=== PATIENT | male | born 1960 | race Caucasian/White ===

== ENCOUNTER 2022-06-02 07:42 | Outpatient (REF) | payer BC, SELFPAY ==
[2022-06-02 11:24] LABS: MANUAL DIFF FLAG NO
[2022-06-02 11:36] LABS: Basophils Percent Auto 0.5 % (0-2); Eosinophils Absolute Auto 0.3 X10*3/uL (0.0-0.4); Eosinophils Percent Auto 4.8 % (0-4); Hematocrit 46.7 % (42.0-52.0); Hemoglobin 15.8 g/dl (14.0-18.0); Imm Gran Abs Auto 0.02 X10*3/uL (0.00-0.03); Imm Gran Pct Auto 0.3 % (0.0-0.4); Lymphocytes Absolute Auto 1.4 X10*3/uL (1.2-4.9); Lymphocytes Percent Auto 21.8 % (20-40); Mean Corpuscular HGB Conc 33.8 g/dl (31.0-36.0); Mean Corpuscular Hemoglobin 31.1 pg (27.0-33.0); Mean Corpuscular Volume 91.9 fL (80.0-98.0); Mean Platelet Volume 10.1 fL (9.4-12.4); Monocytes Absolute Auto 0.9 X10*3/uL (0.1-1.2); Monocytes Percent Auto 13.7 % (2-11); Neutrophils Absolute Auto 3.7 x10*3/uL (2.0-8.3); Neutrophils Percent Auto 58.9 % (45-73); Platelet Count 318 X10*3/uL (160-400); Red Blood Count 5.08 X10*6/uL (4.60-5.80); Red Cell Distribution Width 12.6 % (11.0-16.0); White Blood Count 6.2 X10*3/uL (4.8-10.8)
[2022-06-02 12:33] LABS: Alanine Aminotransferase 27 U/L (0-40); Albumin Level 4.2 g/dL (3.5-5.0); Alkaline Phosphatase 97 U/L (39-117); Anion Gap 12 (12-20); Aspartate Amino Transferase 22 U/L (5-37); Bilirubin Total 0.7 mg/dL (0.0-1.0); Blood Urea Nitrogen 16 mg/dL (9-16); Calcium 9.7 mg/dL (8.4-10.2); Carbon Dioxide 28 mmol/L (22-29); Chloride 105 mmol/L (96-108); Cholesterol 159 mg/dL; Estimated Glomerular Filt Rate > 60; Glucose Random 90 mg/dL (60-115); HDL Cholesterol 36 mg/dL; LDL Cholesterol Calculated 99 mg/dl; Magnesium 2.2 mg/dL (1.6-2.6); Potassium 4.7 mmol/L (3.3-5.1); Sodium 140 mmol/L (135-145); Thyroid Stimulating Hormone 3.27 uIU/mL (0.32-4.0); Total Protein 6.6 g/dL (6.5-8.0); Triglycerides 123 mg/dL
== END 2022-06-02 07:43 | disposition home or self-care (01) ==
LOC: HO.MANLDS 07:42
PROVIDERS: Visit Provider Internal Medicine
DX: Z12.5 Encounter for screening for malignant neoplasm of prostate (principal); I47.1 Supraventricular tachycardia
CPT/HCPCS: 36415; 80053; 80061; 83735; 84153; 84443; 85025

== ENCOUNTER 2022-11-10 07:35 | Outpatient (REF) | payer BC, SELFPAY ==
[2022-11-10 11:38] LABS: MANUAL DIFF FLAG NO
[2022-11-10 11:54] LABS: Basophils Percent Auto 0.6 % (0-2); Eosinophils Absolute Auto 0.2 X10*3/uL (0.0-0.4); Hematocrit 45.3 % (42.0-52.0); Hemoglobin 14.8 g/dl (14.0-18.0); Imm Gran Abs Auto 0.02 X10*3/uL (0.00-0.03); Imm Gran Pct Auto 0.4 % (0.0-0.4); Lymphocytes Absolute Auto 1.7 X10*3/uL (1.2-4.9); Lymphocytes Percent Auto 35.2 % (20-40); Mean Corpuscular HGB Conc 32.7 g/dl (31.0-36.0); Mean Platelet Volume 10.3 fL (9.4-12.4); Monocytes Absolute Auto 0.5 X10*3/uL (0.1-1.2); Monocytes Percent Auto 9.1 % (2-11); Neutrophils Absolute Auto 2.5 x10*3/uL (2.0-8.3); Neutrophils Percent Auto 50.7 % (45-73); Platelet Count 283 X10*3/uL (160-400); Red Blood Count 4.77 X10*6/uL (4.60-5.80); Red Cell Distribution Width 12.7 % (11.0-16.0)
[2022-11-10 12:36] LABS: Alanine Aminotransferase 21 U/L (0-40); Albumin Level 4.1 g/dL (3.5-5.0); Alkaline Phosphatase 74 U/L (39-117); Anion Gap 11 (12-20); Aspartate Amino Transferase 19 U/L (5-37); Blood Urea Nitrogen 17 mg/dL (9-16); Calcium 9.4 mg/dL (8.4-10.2); Carbon Dioxide 27 mmol/L (22-29); Chloride 108 mmol/L (96-108); Cholesterol 141 mg/dL; Estimated Glomerular Filt Rate > 60; Glucose Random 93 mg/dL (60-115); HDL Cholesterol 38 mg/dL; LDL Cholesterol Calculated 86 mg/dl; Potassium 4.7 mmol/L (3.3-5.1); Prostate Specific Antigen 3.35 ng/mL (<0.05-4.0); Sodium 141 mmol/L (135-145); Total Protein 6.4 g/dL (6.5-8.0); Triglycerides 87 mg/dL
== END 2022-11-10 07:36 | disposition home or self-care (01) ==
LOC: HO.MANLDS 07:35
PROVIDERS: Visit Provider Internal Medicine
DX: Z12.5 Encounter for screening for malignant neoplasm of prostate (principal); I47.1 Supraventricular tachycardia
CPT/HCPCS: 36415; 80053; 80061; 84153; 85025

== ENCOUNTER 2023-05-29 11:23 | Outpatient (REF) | payer BC, SELFPAY ==
[2023-05-29 13:10] LABS: MANUAL DIFF FLAG NO
[2023-05-29 13:33] LABS: Basophils Percent Auto 0.3 % (0-2); Eosinophils Absolute Auto 0.1 X10*3/uL (0.0-0.4); Eosinophils Percent Auto 2.1 % (0-4); Hematocrit 44.5 % (42.0-52.0); Hemoglobin 14.9 g/dl (14.0-18.0); Imm Gran Abs Auto 0.02 X10*3/uL (0.00-0.03); Imm Gran Pct Auto 0.3 % (0.0-0.4); Lymphocytes Absolute Auto 1.8 X10*3/uL (1.2-4.9); Lymphocytes Percent Auto 30.1 % (20-40); Mean Corpuscular HGB Conc 33.5 g/dl (31.0-36.0); Mean Corpuscular Volume 92.5 fL (80.0-98.0); Mean Platelet Volume 10.1 fL (9.4-12.4); Monocytes Absolute Auto 0.4 X10*3/uL (0.1-1.2); Monocytes Percent Auto 6.7 % (2-11); Neutrophils Absolute Auto 3.5 x10*3/uL (2.0-8.3); Neutrophils Percent Auto 60.5 % (45-73); Platelet Count 298 X10*3/uL (160-400); Red Blood Count 4.81 X10*6/uL (4.60-5.80); Red Cell Distribution Width 12.6 % (11.0-16.0); White Blood Count 5.8 X10*3/uL (4.8-10.8)
[2023-05-29 13:44] LABS: Estimated Average Glucose 111 mg/dL; Hemoglobin A1c % 5.5 % (<6.0)
[2023-05-29 13:47] LABS: D Dimer High Sensitivity 572 NG/ML
[2023-05-29 14:20] LABS: Erythrocyte Sedimentation Rate 3 MM/HR (0-15)
[2023-05-29 18:14] LABS: Alanine Aminotransferase 20 U/L (0-40); Albumin Level 4.2 g/dL (3.5-5.0); Alkaline Phosphatase 74 U/L (39-117); Anion Gap 12 (12-20); Aspartate Amino Transferase 21 U/L (5-37); Bilirubin Total 0.8 mg/dL (0.0-1.0); Blood Urea Nitrogen 15 mg/dL (9-16); Calcium 9.7 mg/dL (8.4-10.2); Carbon Dioxide 26 mmol/L (22-29); Chloride 106 mmol/L (96-108); Estimated Glomerular Filt Rate > 60; Glucose Random 89 mg/dL (60-115); Iron 126 mcg/dL (45-160); Magnesium 2.3 mg/dL (1.6-2.6); Percent Iron Saturation 47 % (15-50); Potassium 4.2 mmol/L (3.3-5.1); Sodium 140 mmol/L (135-145); Total Iron Binding Capacity 266 mcg/dL (228-428); Total Protein 6.9 g/dL (6.5-8.0); Unsaturated Iron Binding 140 ug/dL
[2023-05-29 18:23] LABS: Ferritin 73 ng/mL (20-250); Free T4 (Free Thyroxine) 1.05 ng/dL (0.71-1.85); Thyroid Stimulating Hormone 2.09 uIU/mL (0.32-4.0)
== END 2023-05-29 11:24 | disposition home or self-care (01) ==
LOC: HO.MANLDS 11:23
PROVIDERS: Visit Provider Physician Assistant
DX: R42 Dizziness and giddiness (principal); R55 Syncope and collapse; R00.2 Palpitations
CPT/HCPCS: 36415; 80053; 82728; 83036; 83540; 83735; 84439; 84443; 85025; 85379; 85652; 86140

== ENCOUNTER 2024-01-14 07:34 | Outpatient (REF) | payer BC, SELFPAY ==
[2024-01-14 13:06] LABS: MANUAL DIFF FLAG NO
[2024-01-14 13:24] LABS: Basophils Percent Auto 0.4 % (0-2); Eosinophils Absolute Auto 0.4 X10*3/uL (0.0-0.4); Eosinophils Percent Auto 6.6 % (0-4); Hematocrit 47.8 % (42.0-52.0); Imm Gran Abs Auto 0.03 X10*3/uL (0.00-0.03); Imm Gran Pct Auto 0.5 % (0.0-0.4); Lymphocytes Absolute Auto 1.9 X10*3/uL (1.2-4.9); Lymphocytes Percent Auto 33.9 % (20-40); Mean Corpuscular HGB Conc 33.5 g/dl (31.0-36.0); Mean Corpuscular Hemoglobin 30.7 pg (27.0-33.0); Mean Corpuscular Volume 91.7 fL (80.0-98.0); Mean Platelet Volume 9.9 fL (9.4-12.4); Monocytes Absolute Auto 0.5 X10*3/uL (0.1-1.2); Monocytes Percent Auto 8.7 % (2-11); Neutrophils Absolute Auto 2.8 x10*3/uL (2.0-8.3); Neutrophils Percent Auto 49.9 % (45-73); Platelet Count 300 X10*3/uL (160-400); Red Blood Count 5.21 X10*6/uL (4.60-5.80); Red Cell Distribution Width 12.9 % (11.0-16.0); White Blood Count 5.6 X10*3/uL (4.8-10.8)
[2024-01-14 13:58] LABS: Alanine Aminotransferase 23 U/L (0-40); Albumin Level 4.2 g/dL (3.5-5.0); Alkaline Phosphatase 78 U/L (39-117); Anion Gap 10 (12-20); Aspartate Amino Transferase 22 U/L (5-37); Bilirubin Total 0.7 mg/dL (0.0-1.0); Blood Urea Nitrogen 18 mg/dL (9-16); Calcium 9.3 mg/dL (8.4-10.2); Carbon Dioxide 26 mmol/L (22-29); Chloride 107 mmol/L (96-108); Cholesterol 163 mg/dL (<200); Estimated Glomerular Filt Rate > 60; Glucose Random 90 mg/dL (60-115); HDL Cholesterol 42 mg/dL (>40); LDL Cholesterol Calculated 96 mg/dL (<100); Potassium 4.3 mmol/L (3.3-5.1); Sodium 139 mmol/L (135-145); Thyroid Stimulating Hormone 1.31 uIU/mL (0.32-4.0); Total Protein 6.8 g/dL (6.5-8.0); Triglycerides 127 mg/dL (<150)
[2024-01-14 14:07] LABS: Prostate Specific Antigen 1.56 ng/mL (<0.05-4.0)
== END 2024-01-14 07:35 | disposition home or self-care (01) ==
LOC: HO.MANLDS 07:34
PROVIDERS: Visit Provider Internal Medicine
DX: I47.10 Supraventricular tachycardia, unspecified (principal)
CPT/HCPCS: 36415; 80053; 80061; 84153; 84443; 85025

== ENCOUNTER 2024-04-25 08:46 | Outpatient (AMB) | payer MEDICARE, OTHER, SELFPAY ==
--- NOTE | 2024-04-25 08:50 | HO.SPINEOV ---
Vital Signs 04/25/24 08:59 Height 5 ft 11 in Weight 180 lb BMI 25.1 Intake Visit Reasons: pinch nerve/pain right buttock area Intake Note: Mr. Ace is here today c/o right sided buttock pain with partial numbness down the leg to the foot. Student Union Consultant Required: No Allergies No Known Allergies Allergy (Verified 04/25/24 08:59) Physical Exam Vital Signs: BMI result Body Mass Index 25.1 Assessment & Plan Assessment & Plan (1) Lumbar stenosis with neurogenic claudication: Code(s): M48.062 - Spinal stenosis, lumbar region with neurogenic claudication Category: Medical Plan Dear colleague Thank you for referring Juan Ace to the office today with a chief complaint of intermittent right leg pain. HPI: This 63-year-old male has a 1 year history of intermittent pain on the right side of his back and buttock. When the pain arises, it comes during walking or standing in the kitchen. Sitting down relieves the symptoms. He still plays golf and he could finish the 18 holes but he will feel the pain at that time. He also noticed numbness on the lateral side of his right thigh. His toes and ball of his foot are also feeling swollen. The left side is unaffected. He denies weakness. A recent cortisone shot only helped for 2 weeks. The following conservative treatment options were tried without success antiinflammatories, tylenol, physical therapy and, cortisone shots PMH: Paroxysmal atrial tachycardia. He may be a candidate for ablation. He is under cardiological evaluation Medications: Diltiazem, flecainide, atorvastatin Allergies: NKDA Social history: , nonsmoker Physical Exam: Pleasant male. Straight leg raise is negative. Motor exam is 5/5 throughout. Sensory exam shows diminished sensation over the right lateral part of his right thigh. Reflexes are symmetrically intact. No pathological reflexes. Gait is undisturbed. Radiological Studies: MRI done at [facility] on 05/14/2023 shows lumbar degenerative scoliosis but more importantly it shows [id number] right L5 neuroforaminal stenosis. Dynamic lumbar x-rays show no signs of instability and again confirms the lumbar degenerative scoliosis with the apex at L4-5. Impression/Plan: This 63-year-old male suffering from unilateral neurogenic claudication due to right L5 neuroforaminal stenosis. He failed conservative management. The symptoms are interfering with his daily activities. Therefore I offered him a right L5 foraminotomy. He is tentatively scheduled for 06/19/2024. He will obtain preoperative cardiology clearance. Thank you for allowing me to participate in your patients care. total time spent was 50 minutes in counseling ,coordination of plan, personal review of imaging, surgical decision making and subsequent plan Isaias Townsend MD, PhD Spine Fellowship Trained Neurosurgeon Director, [facility] Orders: Orders XR lumbar spine 4V min Today M48.062 - Spinal stenosis, lumbar region with neurogenic claudication Coding Level of Care Code New Pt Level 4 (00324) Diagnoses Lumbar stenosis with neurogenic claudication M48.062
[2024-04-25 08:59] VITALS: BMI 25.1
== END 2024-04-25 09:50 | disposition home or self-care (01) ==
PROVIDERS: PCP Internal Medicine; Visit Provider Neurological Surgery
DX: M48.062 Spinal stenosis, lumbar region with neurogenic claudication (principal)
CPT/HCPCS: 99204

== ENCOUNTER 2024-04-25 08:46 | Outpatient (REF) | payer MEDICARE, OTHER, SELFPAY | END 2024-04-25 08:47 | disposition home or self-care (01) | LOC: HO.HOSX 08:46 | PROVIDERS: PCP Internal Medicine; Visit Provider Neurological Surgery | DX: M48.062 Spinal stenosis, lumbar region with neurogenic claudication (principal) | CPT/HCPCS: 72110; 99202 ==

== ENCOUNTER 2024-06-19 06:47 | Day surgery (SDC) | payer MEDICARE, OTHER, SELFPAY ==
[2024-06-03 10:03] VITALS: BP 126/78; PULSE 64; RESP 18; O2SAT 96; BMI 26.1
--- NOTE | 2024-06-17 12:04 | P.CONAN_ITS ---
Documented by User: Analy Ornelas NP 06/17/24 12:09 HPI - Anesthesia Eval Consult details Narrative: 64yo M for Right L5 foraminotomy [facility] for atrial arrhythmia (remote PAF hx). Last office visit 05/2024, ok to proceed with spine surgery, planned further EP w/u after recovered. Reports good exercise tolerance with regular treadmill runs PMFSH Active Problems Active Problems: All Active Problems Lumbar stenosis with neurogenic claudication (Acute) Past Medical History Medical History (Updated 06/19/24 @ 07:09 by Mer Lowe RN) Chalazion Elevated cholesterol SVT (supraventricular tachycardia) Acute tear lateral meniscus Rotator cuff syndrome Polyp of colon Rupture of left rotator cuff Lateral epicondylitis Weakness Otitic barotrauma PAT (paroxysmal atrial tachycardia) Sleep apnea Arrhythmia Surgical History Surgical History (Updated 06/19/24 @ 07:09 by Mer Lowe RN) History of esophagogastroduodenoscopy (EGD) H/O colonoscopy Hx of knee surgery Hx of tonsillectomy Social History Social History Are you a primary post anesthesia care unit nurse to a significant other at home: No Do you presently have visiting nurse or other home services: No Patient Tobacco Use Status: Never used Tobacco Use of substances other than those prescribed or required for medical reasons: No Have you been hit, kicked, punched, or otherwise hurt by someone within the past year? If so, by whom?: No Are you DNR?: No Advance Directives: No Advance Directives Information Provided: Yes Advance Directives on File: No Recently lost weight without trying: No Eating poorly because of decreased appetite: No Nutrition Risks: No Nutritional Risk Poor oral hygiene: Yes (crowns) Meds Allergies Allergy/AdvReac Type Severity Reaction Status Date / Time No Known Allergies Allergy Verified 04/25/24 08:59 Home Medications ?Medication ?Instructions ?Recorded ?Confirmed ?Last Taken ?Type aspirin 81 mg tablet,delayed 81 mg PO DAILY 06/03/24 06/03/24 06/11/24 History release atorvastatin 20 mg tablet 40 mg PO DAILY 06/03/24 06/03/24 Unknown History cholecalciferol (vitamin D3) 10 20 mcg PO DAILY 06/03/24 06/03/24 Unknown History mcg (400 unit) tablet coenzyme Q10 30 mg capsule 30 mg PO DAILY 06/03/24 06/03/24 Unknown History diltiazem HCl 240 mg capsule,24 240 mg PO DAILY 06/03/24 06/03/24 06/19/24 History hr,extended release flecainide 150 mg tablet 75 mg PO Q12H 06/03/24 06/03/24 06/19/24 History ibuprofen 400 mg tablet 400 mg PO Q6H PRN Pain 06/03/24 06/03/24 Unknown History epitnvtj-ekfm-[id number] gluconate 9 15 ml PO DAILY 06/03/24 06/03/24 Unknown History mg iron/15 mL (15 mL) oral liquid (Centrum) sildenafil 50 mg tablet 50 mg PO DAILY PRN Sexual Activity 06/03/24 06/03/24 Unknown History Exam Height,Weight and Vital Signs: Height 5 ft 11 in Weight 84.822 kg Last Vital Signs Pulse 64 06/03/24 10:03 Resp 18 06/03/24 10:03 BP 126/78 06/03/24 10:03 Pulse Ox 96 06/03/24 10:03 O2 Del Method Room Air 06/03/24 10:03 Pertinent Lab Results Pertinent Lab Results: Laboratory Tests 01/14/24 07:39 WBC 5.6 Hgb 16.0 Hct 47.8 Plt Count 300 Sodium 139 Potassium 4.3 Chloride 107 Carbon Dioxide 26 BUN 18 H Creatinine 0.87 Narrative Narrative: EKG 05/2024 SB with 1st deg AV block ECHO 2022 Nml EF, no valve disease Assessment and Plan Assessment Anesthesia Assessment: Chart Reviewed Documented by User: Jos Enciso MD 06/19/24 07:28 [facility], [facility] Past Medical History Medical History (Updated 06/19/24 @ 07:09 by Mer Lowe RN) Chalazion Elevated cholesterol SVT (supraventricular tachycardia) Acute tear lateral meniscus Rotator cuff syndrome Polyp of colon Rupture of left rotator cuff Lateral epicondylitis Weakness Otitic barotrauma PAT (paroxysmal atrial tachycardia) Sleep apnea Arrhythmia Family History Family history of problems with anesthesia: No Surgical History Surgical History (Updated 06/19/24 @ 07:09 by Mer Lowe RN) History of esophagogastroduodenoscopy (EGD) H/O colonoscopy Hx of knee surgery Hx of tonsillectomy History of Problems with Anesthesia: No Social History Social History Are you a primary post anesthesia care unit nurse to a significant other at home: No Do you presently have visiting nurse or other home services: No Patient Tobacco Use Status: Never used Tobacco Use of substances other than those prescribed or required for medical reasons: No Have you been hit, kicked, punched, or otherwise hurt by someone within the past year? If so, by whom?: No Are you DNR?: No Advance Directives: No Advance Directives Information Provided: Yes Advance Directives on File: No Recently lost weight without trying: No Eating poorly because of decreased appetite: No Nutrition Risks: No Nutritional Risk Poor oral hygiene: Yes (crowns) Meds Allergies Allergy/AdvReac Type Severity Reaction Status Date / Time No Known Allergies Allergy Verified 04/25/24 08:59 Home Medications ?Medication ?Instructions ?Recorded ?Confirmed ?Last Taken ?Type aspirin 81 mg tablet,delayed 81 mg PO DAILY 06/03/24 06/03/24 06/11/24 History release atorvastatin 20 mg tablet 40 mg PO DAILY 06/03/24 06/03/24 Unknown History cholecalciferol (vitamin D3) 10 20 mcg PO DAILY 06/03/24 06/03/24 Unknown History mcg (400 unit) tablet coenzyme Q10 30 mg capsule 30 mg PO DAILY 06/03/24 06/03/24 Unknown History diltiazem HCl 240 mg capsule,24 240 mg PO DAILY 06/03/24 06/03/24 06/19/24 History hr,extended release flecainide 150 mg tablet 75 mg PO Q12H 06/03/24 06/03/24 06/19/24 History ibuprofen 400 mg tablet 400 mg PO Q6H PRN Pain 06/03/24 06/03/24 Unknown History fbwtgtvp-prcp-pfblczp gluconate 9 15 ml PO DAILY 06/03/24 06/03/24 Unknown History mg iron/15 mL (15 mL) oral liquid (Centrum) sildenafil 50 mg tablet 50 mg PO DAILY PRN Sexual Activity 06/03/24 06/03/24 Unknown History Exam Airway Mallampati Class: II TM Dist: >3cm Neck ROM: Full Assessment and Plan Assessment Anesthesia Assessment: Anesthesia Plan Discussed Final Anesthetic Review Family History of Problems with Anesthesia: No History of Problems with Anesthesia: No ASA Class: II Final Preanesthetic Review: No Changes in Pt Med Stat, Meds/Allgs Chart Reviewed, Consent Obtained/Reviewed, Anes Risks/Benef Reviewed and DNR Form (If Appl.) Patient Risk: Intermediate Procedure Risk: Intermediate Anesthetic Plan Anesthetic Plan: GA Disposition: Standard PACU
--- NOTE | 2024-06-19 07:02 | MHC.SHP ---
Pre-Procedural Eval Section A - 24 Hr Update-Section A only Date of Service: 06/19/24 Section B - Complete if H&P > 30 days Chief Complaint: Spinal stenosis, lumbar region with neurogenic Allergies: Allergies Allergy/AdvReac Type Severity Reaction Status Date / Time No Known Allergies Allergy Verified 04/25/24 08:59 Review of Systems Sugical H&P ROS: Negative: Constitution, Cardiovascular, Respiratory, Neurological, Psychiatric, Hem-Onc, Allergic/Immunologic, Gastrointestinal, Genitourinary, Musculoskeletal, Integumentary, Endocrine and Eyes/Ears/Nose/Throat Exam Surgical H&P Exam: Not Evaluated: HEENT, Not Evaluated: Heart, Not Evaluated: Lungs, Not Evaluated: Extremities, Not Evaluated: Abdomen, Not Evaluated: Skin and Not Evaluated: Neurological Exam Comment: The patient is awake, alert, in no acute distress. Proposed surgical incision site is clean with no signs of recent surgery or trauma. Plan Diagnosis/Plan: Unchanged I have reviewed the history and physical and performed a pertinent physical examination on my patient. No changes have occurred unless specified. Plan remains the same, right L5 foraminotomy. Time Spent With Patient Time: Total time managing care of this patient today __11__ minutes.
--- NOTE | 2024-06-19 07:04 | P.DS_ITS ---
DS: Providers Provider Primary care physician: Landen Nunez MD Physical Exam Vital Signs: Vital Signs: Last Vital Signs Pulse 64 06/03/24 10:03 Resp 18 06/03/24 10:03 BP 126/78 06/03/24 10:03 Pulse Ox 96 06/03/24 10:03 O2 Del Method Room Air 06/03/24 10:03 BMI result Body Mass Index 26.1 Discharge Plan Discharge Patient Disposition: Home, Self-Care Referrals: Landen Nunez MD [Primary Care Provider] - 1 Week Discharge Medications: New oxycodone 5 mg tablet 5 mg PO Q6H PRN (Reason: pain) Qty: 20 0RF Rx Instructions: Partial Fill upon patient request. Continued atorvastatin 20 mg tablet 40 mg PO DAILY flecainide 150 mg Tablet 75 mg PO Q12H sildenafil 50 mg Tablet 50 mg PO DAILY PRN (Reason: Sexual Activity) Rx Instructions: administer 30 minutes to 4 hours before activity diltiazem HCl 240 mg Capsule,Extended Release 24 Hr 240 mg PO DAILY cholecalciferol (vitamin D3) 10 mcg (400 unit) Tablet 20 mcg PO DAILY coenzyme Q10 30 mg Capsule 30 mg PO DAILY Centrum 9 mg iron/ 15 mL (15 mL) Liquid 15 ml PO DAILY Held aspirin 81 mg Tablet,Delayed Release (Dr/Ec) 81 mg PO DAILY Hold Instructions: Resume on 06/23/24. ibuprofen 400 mg Tablet 400 mg PO Q6H PRN (Reason: Pain) Hold Instructions: Resume on 06/20/24. Diet: Advance to usual diet Activity on Discharge: As tolerated Activity Restrictions/Additional Instructions: After your spinal surgery we ask you to observe the following rest rictions/guidelines: Activity: It is normal to feel some discomfort as you increase your activity, but that will improve with time. We ask you avoid heavy lifting or acitivities that cause pain. As a general rule, 8lbs is a safe limit for lifting right after surgery. Walk as much as you feel comfortable but not to exhaustion. You will feel extra tired the first few days after surgery. Stay well hydrated. It is OK to walk up and down stairs You may return to driving when you are off narcotics (such as vicodin, oxycodone, dilaudid, etc), and you are back to normal functional capacity. If you have any concerns please check with office before driving. Return to work is specific to each patient and each surgery, so please speak with your doctor/PA at first follow up. Please bring paperwork such as FMLA at that time if you need it filled out. Medications: You may resume your aspirin 3 days after surgery. You may resume ibuprofen tomorrow. We recommend you take 1,000mg Tylenol every 8 hours for the first few weeks after surgery, if you do not have any liver issues and can tolerate this medication. Do not exceed 4,000mg daily. We will give you a short supply of narcotics after surgery (usually one weeks worth). If you need more please call the office but do not use more than prescribed. You will need to give our office 48 hours notice if you need narcotics refilled and we do not fill narcotics on weekends or evenings. If you are on a narcotic, it is a good idea to take a stool softener such as colace or senna to avoid constipation If you take blood thinner such as aspirin, Plavix, Coumadin, Effient, Eliquis etc for conditions such as Afib, DVT, Pulmonary embolus, coronary disease, stents etc please speak with your surgeon about specific details as to when you can resume these medications. You can resume NSAIDs on post op day 1 (eg: Motrin, Naproxen, etc). Follow up: Please call the office, , after surgery to arrange a 3 week follow up for wound check. Wound Care: You may remove your dressing on the first day after surgery. ?You may ?leave open to air. Please do not remove the steri strips underneath. they will fall off on their own in one week. IT IS NORMAL FOR THE WOUND TO OOZE OR BE BLOODY FOR A FEW DAYS AFTER SURGERY. ?IF THIS HAPPENS JUST PLACE NEW DRESSING OVER IT TO AVOID STAINING CLOTHES. You may shower on post op day # 1 We ask that you do not let the water soak the wound. If it does get wet, just towel dry lightly. Please do not scrub your incision or place any type of chemical/ointment on the wound. No tub baths, pools or jacuzzis for one month. If you have any leaking or redness from your wound, or fevers, please call the office. Print Language: Peruvian
[2024-06-19 07:28] VITALS: BP 123/76; PULSE 59; RESP 16; TEMP 36.8; O2SAT 96
[2024-06-19] MEDS: Lactated Ringers 1,000 ML 100 ML IVCONT (07:37)
[2024-06-19] MEDS: methocarbamoL 750 MG TABLET PO (07:43)
[2024-06-19] MEDS: Gabapentin 300 MG CAPSULE PO (07:43)
--- NOTE | 2024-06-19 09:36 | P.OP_ITS ---
Operative Note Operative Note Date of Service: 06/19/24 Narrative: Preoperative Diagnosis: Spinal stenosis/lateral recess stenosis/neural foraminal stenosis Operation: Right L5 Laminotomy, Partial facetectomy and foraminotomy with use of microscope Consent Informed Consent was obtained for this operation. I have explained the nature, purpose and benefits of the operation. I have discussed the risks and benefit of the operation including possible complications or adverse events with patient/family. Alternative(s) were discussed with the patient with their relative benefits and risks as well as the consequences of not accepting the operation were included in obtaining consent. Surgeon: PHI ALEMAN MD, PHD Procedure Assisted By: Bernabe Mai PA-C Description of Procedure This patient is suffering from a right L5 lumbar radiculopathy. He was offered a right L5 foraminotomy with decompression of the nervous structures. The procedure complications were explained. The patient was consented. The patient was brought to the operating room and endotracheally intubated. The patient was turned in prone position on the Wayne frame. Prep and drape was done followed by timeout. Physician employee relations assistant provided access. A mid lumbar incision was made followed by release of the paravertebral muscle on the right side to expose the L5 lamina and facet joint. An intraoperative x-ray was obtained to confirm the correct level. The microscope was brought in. I took over the procedure. The high-speed drill was used to do a L5 laminotomy. #2 Kerrison was used to further remove the lamina towards the L5 foramen. With a nerve hook the medial wall of the L5 pedicle was palpated as well as the beginning of the L5 foramen. The facet joint was partially drilled down after which with a #2 Kerrison a foraminotomy was done. Finally a foraminotomy Kerrison was used to complete the foraminotomy. A long nerve hook could be easily passed lateral and dorsally from the nerve root, a sign of relief of the neuroforaminal stenosis and decompression of the nerve root . The microscope was removed. Hemostasis was done. Incision was closed in 2 layers. Steri-Strips were used to approximate incision. An OpSite with Tegaderm was used to cover the incision. All sponge needle counts were correct. Patient was extubated and transported in stable is to recovery room. Anesthesia: General Estimated Blood Loss (ml): Minimal Duration of Surgery: Under 60 Minutes Postoperative Plan: Discharge to home
[2024-06-19 09:48] VITALS: BP 120/63; PULSE 77; RESP 16; TEMP 36.1; O2SAT 97
[2024-06-19 09:54] VITALS: BP 114/64; PULSE 70; RESP 16; O2SAT 97
[2024-06-19 10:00] VITALS: BP 118/66; PULSE 67; RESP 16
[2024-06-19 10:05] VITALS: BP 118/64; PULSE 70; RESP 16; O2SAT 99
[2024-06-19 10:20] VITALS: BP 121/72; PULSE 65; RESP 16; TEMP 36.2; O2SAT 95
== END 2024-06-19 11:14 | disposition home or self-care (01) ==
PROVIDERS: PCP Internal Medicine; Visit Provider Neurological Surgery
PROC: (CPT 63047; principal; 2024-06-19 09:00)
DX: M48.062 Spinal stenosis, lumbar region with neurogenic claudication (principal); R20.0 Anesthesia of skin; M41.56 Other secondary scoliosis, lumbar region; M79.89 Other specified soft tissue disorders; I47.19 Other supraventricular tachycardia; G47.33 Obstructive sleep apnea (adult) (pediatric); Z79.899 Other long term (current) drug therapy
CPT/HCPCS: 63047; J0131; J0690; J1100; J1885; J2003; J2250; J2405; J2704; J3010

== ENCOUNTER → 2024-06-19 06:47 | Outpatient (BNV) | payer MEDICARE, OTHER, SELFPAY | PROVIDERS: PCP Internal Medicine; Visit Provider Neurological Surgery | DX: M48.062 Spinal stenosis, lumbar region with neurogenic claudication (principal) | CPT/HCPCS: 63047 ==

== ENCOUNTER 2024-07-10 09:51 | Outpatient (AMB) | payer MEDICARE, OTHER, SELFPAY ==
--- NOTE | 2024-07-10 09:52 | HO.SPINEOV ---
Intake Visit Reasons: 1st post op Intake Note: Mr. Ace is here today for his 1st post op visit. Wire Stretcher Required: No Allergies No Known Allergies Allergy (Verified 07/10/24 09:53) Assessment & Plan Assessment & Plan (1) Lumbar stenosis with neurogenic claudication: Code(s): M48.062 - Spinal stenosis, lumbar region with neurogenic claudication Category: Medical Plan Operation: Right L5 Laminotomy, Partial facetectomy and foraminotomy Juan comes in today for his 1st postoperative visit. To recap he was initially seen in clinic for 1 year history of intermittent pain on the right side of his back and buttock. He underwent right sided L5 foraminotomy to address this. The patient reports he is up walking around and completing the majority of his ADLs. He reports that he only now intermittently suffers from his right-sided back / buttocks discomfort, which he feels is improving day by day. No new neurological deficits. Patient is able to ambulate well, rises from a seated position without difficulty. Incision site is closed, well healing, with no signs of drainage. We will follow-up with the patient in 6 weeks for their 2nd postoperative visit. Bernabe Townsend MD,PhD [facility] Coding Level of Care Code Global (96361) Diagnoses Lumbar stenosis with neurogenic claudication M48.062
== END 2024-07-10 10:07 | disposition home or self-care (01) ==
PROVIDERS: PCP Internal Medicine; Visit Provider Physician Assistant
DX: M48.062 Spinal stenosis, lumbar region with neurogenic claudication (principal)
CPT/HCPCS: 99024

== ENCOUNTER → 2024-07-10 09:51 | Outpatient (BNVA) | payer MEDICARE, OTHER, SELFPAY | PROVIDERS: PCP Internal Medicine; Visit Provider Physician Assistant | DX: Z48.89 Encounter for other specified surgical aftercare (principal); M48.062 Spinal stenosis, lumbar region with neurogenic claudication; Z98.890 Other specified postprocedural states | CPT/HCPCS: 99212 ==

== ENCOUNTER 2024-08-21 09:50 | Outpatient (AMB) | payer MEDICARE, OTHER, SELFPAY ==
--- NOTE | 2024-08-21 10:07 | HO.SPINEOV ---
Intake Visit Reasons: 2nd post op Intake Note: Mr. Ace is here today for his 2nd post op. Network Engineer Required: No Allergies No Known Allergies Allergy (Verified 08/21/24 10:07) Assessment & Plan Assessment & Plan (1) Lumbar stenosis with neurogenic claudication: Code(s): M48.062 - Spinal stenosis, lumbar region with neurogenic claudication Category: Medical Plan Procedure: Right L5 Laminotomy, Partial facetectomy and foraminotomy Juan is a pleasant 64-year-old male who comes in today for a 2nd postoperative visit. To recap he underwent a right-sided L5 foraminotomy on 06/19/2024 to address his right lumbar radiculopathy. During his last postoperative visit he was doing very minimal right-sided back and leg pain when increasing activity. He was accompanied by his significant other to this visit today. They both asked several questions regarding the postoperative healing course all of which I answered to the best of my ability. No new neurological deficits. The patient ambulates well and rises from a seated position without difficulty. His posterior incision site is closed and well healed. There is no need for continued routine follow up with Juan, he may be discharged as a patient. Bernabe Townsend MD,PhD [facility] Coding Level of Care Code Global (85755) Diagnoses Lumbar stenosis with neurogenic claudication M48.062
--- OUTSIDE RECORDS SUMMARY | 2024-08-21 12:02 | XMS_ITS | Encounter Summary ---
Author Organization [facility] Address [address] [place] [address] Care Team Providers Care Director Of Officiating Name Role Phone Rafael Suárez MD Unavailable [phone] Nenita Desir MD Unavailable Sherry Schwartz DO Unavailable Unavailable Danie Mobley MD Unavailable [phone] Tila Russell MD Unavailable Unavailable Dalton Campos MD Unavailable Vinicio Bell DMD Unavailable Dalton Castrejon MD Unavailable Colin Ervin DPM Unavailable [phone] Pcp, No Primary Care Provider Unavailabl e Reason for Visit * Reason Comments Medication Refill Encounter Details Date Type Department Care Team (Late st Contact Info) Description 12/14/2021 Refill [facility] [place] [address] [facility], [id number] [place] [id number] Ariana Mckinley MD [address] [place] [address] Elevated cholesterol Social History Tobacco Use Types Packs/Day Years Used Date Smoking Tobacco: Never Smokeless Tobacco: Never Alcohol Use Standard Drinks/Week Comments Yes 0 (1 standard drink = 0.6 oz pur e alcohol) SOCIALLY PHQ-2 Answer Date Recorded PHQ-2 Total Score 0 04/15/2020 Sex and Gender Information Value Date Recorded Sex Assigned at Not on file Gender Identity Male 12/09/2022 10:23 AM EDT Sexual Orientation Heterosexual (straight) 12/09 10:23 AM EDT documented as of this encounter Plan of Treatment Not on file documented as of this encounter Visit Diagnoses Diagnosis Elevated cholesterol Pure hypercholesterolemia documented in this encounter Care Teams Director Of Officiating Relationship Specialty Start Date End Date Pcp, No [address] [place] [address] PCP - General 12/28/20 Rafael Suárez MD Surgery, Colorectal 03/07/18 Nenita Desir MD Cardiovascular Disease 03/07/18 Sherry Schwartz DO Pulmonary Medicine 04/14/19 Danie Mobley MD Pulmonary Medicine 05/06/19 Tila Russell MD Otolaryngology 07/14/19 Dalton Campos MD Cardiovascular Disease 01/27/20 Vinicio Bell DMD Dentistry 04/15/20 Dalton Castrejon MD [address] [place] [id number] Ophthalmology 04/15/20 Colin Ervin DPM [address] [place] [id number] Podiatry 04/15/20 documented as of this encounter
--- OUTSIDE RECORDS SUMMARY | 2024-08-21 12:02 | XMS_ITS | Encounter Summary ---
Author Organization [facility] Address [address] [place] [address] Care Team Providers Care Hospital Nurse Liaison Name Role Phone Provider, Jeanine HENDERSON Primary Care Provider Un available Rommel Galdamez MD Primary Care Provider Unavail able Rafael Suárez MD Unavailable +- [phone] Nenita Desir MD Unavailable Sherry Schwartz DO Unavailable Unavailable Danie Mobley MD Primary Care Provider [phone] Danie Mobley MD Unavailable [phone] Rommel Galdamez MD Primary Care Provider Unavail able Tila Russell MD Unavailable Unavailable Rommel Galdamez MD Unavailable Unavailable Ariana Mckinley MD Primary Care Provider [phone] Dalton Campos MD Unavailable [phone] Vinicio Bell DMD Unavailable [phone] Dalton Castrejon MD Unavailable [phone] Colin Ervin DPM Unavailable [phone] Pcp, No Primary Care Provider Unavailabl Ariana Woodson MD Unavailable Encounter Details Date Type Department Care Team (Late st Contact Info) Description 03/21/2017 Scanned Document [address], [address] [place] [address] Rommel Galdamez MD Social History Tobacco Use Types Packs/Day Years Used Date Smoking Tobacco: Never Alcohol Use Standard Drinks/Week Comments No 0 (1 standard drink = 0.6 oz pur e alcohol) Sex and Gender Information Value Date Recorded Sex Assigned at Not on file Gender Identity Male 12/09/2022 10:23 AM EDT Sexual Orientation Heterosexual (straight) 12/09 10:23 AM EDT documented as of this encounter Plan of Treatment Not on file documented as of this encounter Visit Diagnoses Not on filedocumented in this encounter Care Teams Hospital Nurse Liaison Relationship Specialty Start Date End Date ProviderJeanine MD PCP - General 11/28/16 04/17/17 Rommel Galdamez MD PCP - General Internal Medicine 04/18/17 05/05/19 Danie Mobley MD PCP - General Pulmonary Medicine 05/06/19 06/25/19 Rommle Galdamez MD PCP - General Internal Medicine 06/26/19 09/25/19 Rommel Galdamez MD PCP - [place] [employer] Attributed 10/09/18 05/10/19 Ariana Mckinley MD [address] [place] [address] PCP - General Internal Medicine 09/26/19 12/27/20 Pcp, [address] [address] PCP - General 12/28/20 Ariana Mckinley MD [address] [place] [address] PCP - [place] [employer] Attributed 10/09/20 11/08/20 Rafael Suárez MD Surgery, Colorectal 03/07/18 Nenita Desir MD Cardiovascular Disease 03/07/18 Sherry Schwartz DO Pulmonary Medicine 04/14/19 Danie Mobley MD Pulmonary Medicine 05/06/19 Tila Russell MD Otolaryngology 07/14/19 Dalton Campos MD [address] [place] [address] Cardiovascular Disease 01/27/20 Vinicio Bell, DMD [address] [place] [address] Dentistry 04/15/20 Dalton Castrejon MD [address] [place] [address] [address] [place] [address] Ophthalmology 04/15/20 Colin Ervin DPM [address] [place] [address] Podiatry 04/15/20 documented as of this encounter
--- OUTSIDE RECORDS SUMMARY | 2024-08-21 12:02 | XMS_ITS | Clinical Summary ---
Author Organization [facility] Address [address] [place] [address] Care Team Providers Care Pie Dough Roller Name Role Phone Rafael Suárez MD Unavailable [phone] Nenita Desir MD Unavailable Sherry Schwartz DO Unavailable Unavailable Danie Mobley MD Unavailable [phone] Tila Russell MD Unavailable Unavailable Dalton Campos MD Unavailable [phone] Vinicio Bell DMD Unavailable +[phone] Dalton Castrejon MD Unavailable [phone] Colin Ervin DPM Unavailable [phone] Pcp, No Primary Care Provider Unavailabl e Allergies No known active allergies Medications Medication Sig Dispensed Refills Start Date End Date Status aspirin enteric coated (ECOTRIN LOW STRENGTH) 81 MG EC tablet Take 81 mg by mouth. Active Multiple Vitamin (MULTIVITAMIN) tablet Take 1 tablet by mouth. Active diltiazem (CARDIZEM CD) 240 MG 24 hr capsule 03/31/2017 Active flecainide (TAMBOCOR) 150 MG tablet Take 150 mg by mouth twice daily (every 12 hours). Active sildenafil (VIAGRA) 50 MG tabletIndications:Ere ctile dysfunction, unspecified erectile dysfunction type Take 1 tablet (50 mg total) by mouth daily as needed for erectile dysfunction. 10 tablet 3 10/06/2020 Active atorvastatin (LIPITOR) 20 MG tabletIndications:Jayda maciel cholesterol TAKE 1 TABLET BY MOUTH EVERY DAY 90 tablet 3 10/28/2020 Active Active Problems Problem Noted Date Diagnosed Date Vitamin D insufficiency 04/22/2020 Sleep apnea 04/15/2020 Lateral epicondylitis of right elbow 04/05/2017 Nocturia 04/05/2017 Paroxysmal atrial fibrillation 03/20/2017 Atrial fibrillation 03/04/2017 Palpitation 01/30/2017 Overview (03/07/2018): PSVT on diltiazem precipitated by trumpet playing or Flomax Paroxysmal supraventricular tachycardia 06/14/19 15 Overview (04/05/2017): Overview: 1. Paroxysmal supraventricular tachycardia with palpitations. 24 Holter monitoring on 01/26/12 showed episodes of 2:1 atrial tachycardia at a rate of 130 -170 bpm. It is typically of sudden onset and gradual offset and Holter tracing also demonstrated cool down phenomena. One occupational trigger was playing trDriverSideet. There was occasional lightheadedness during tachycardia. No syncope or presyncope events. Symptom occurred since July 2011. Frequency is about 2-4 times a month. Duration is about 5-10 min. palpitations occurring randomly during his trumpet practice but not actual trDriverSideet performance. Symptom is fully controlled with current dose of calcium channel tian. Continue therapy. Tricuspid valve insufficiency 06/14/2014 Overview (04/05/2017): Overview: 1. Valvular regurgitations. Echocardiogram 03/13/12 showed trace MR and trace TR. LVEF 65%. Normal LV thickness, normal diastolic function and normal left atrial size. Normal RV function and pressure with RVSP of 20 mmHg. Mitral regurgitation 06/14/2014 Overview (03/07/2018): Overview: 1. Valvular regurgitations. Echocardiogram 03/13/12 showed trace MR and trace TR. LVEF 65%. Normal LV thickness, normal diastolic function and normal left atrial size. Normal RV function and pressure with RVSP of 20 mmHg. TR (tricuspid regurgitation) 06/14/2014 Overview (03/07/2018): Overview: 1. Valvular regurgitations. Echocardiogram 03/13/12 showed trace MR and trace TR. LVEF 65%. Normal LV thickness, normal diastolic function and normal left atrial size. Normal RV function and pressure with RVSP of 20 mmHg. Hyperkalemia 05/03/2013 Back pain Overview (03/07/2018): L4 radic Headache Recurrent sinus infections Hemorrhoid Immunizations Name Administration Dates Next Due Influenza Inactivated/Split Preservative Free IM 03/10/2020,05/22/2017,04/05/2017,2013 Tdap 05/22/2017,04/05/2017,01/18/2006 Zoster Vaccine Live/Attenuat ed (Zostavax) 02/27/2012 Zoster Vaccine Recombinant (Shingrix) 07/09/2018 ,04/09/2018 Family History Medical History Relation Name Comments Cancer Father BLADDER Heart attack Father Diabetes Maternal Grandfather Stroke Paternal Grandmother Relation Name Status Comments Father Maternal Grandfather Paternal Grandmother Social History Tobacco Use Types Packs/Day Years [...] Orientation Heterosexual (straight) 12/09 10:23 AM EDT Last Filed Vital Signs Vital Sign Reading Time Taken Comments Blood Pressure 139/84 04/15/2020 2:33 PM EST Pulse 71 04/15/2020 2:33 PM EST Temperature 36.9 ??C (98.4 ??F) 04/15/2020 2:33 PM ES T Respiratory Rate 14 04/15/2020 2:33 PM EST Oxygen Saturation 96% 04/15/2020 2:33 PM EST Inhaled Oxygen Concentration - - Weight 81.2 kg (179 lb) 04/15/2020 2:33 PM EST Height 178.3 cm (5' 10.2 ) 04/15/2020 2:33 PM ES T Body Mass Index 25.54 04/15/2020 2:33 PM EST Plan of Treatment Health Maintenance Due Date Last Done Comments HIV Screening 1972 Pneumococcal Vaccines 50+ (1 of 2 - PCV) 1978 Colonoscopy 01/10/2023 01/10/2018 (Prev iously Completed), 01/10/2018 Influenza Vaccine 01/10/2024 03/10/2020, , 04/05/2017, Additional history exists COVID-19 Vaccine (3 - season) 2024 10/02/2020, 09/11/2020 DTaP/Tdap/Td Vaccines (4 - Td or Tdap) 05/22/2027 05/22/2017, 04/05/2017, 01/18/2006 RSV Vaccine 60 years and older and Patients (1 - 1-dose 75+ series) 2034 Zoster (Shingles) Vaccine Completed 2018, 04/09/2018, 02/27/2012 Hepatitis C Virus Screening Completed 08/05/2018 Hepatitis B Vaccines Aged Out No long er eligible based on patient's age to complete this topic Procedures Procedure Name Priority Date/Time Associated Diagnosis Comments HEPATITIS C VIRUS (HCV) ANTIBODY Routine 08/05/2018 12:01 PM EST Need for hepatitis C screening test from Last 3 Months or Most Recently Relevant to Health Maintenance Results * Hepatitis C Antibody (08/05/2018 12:01 PM EST) Hepatitis C Antibody NON-REACT REGINE NON-REACT REGINE [facility] Hepatitis C Antibody (s/co) 0.02 <1.00 [facility] Comment: HCV antibody was non-reactive. There is no laboratory evidence of HCV infection. In most cases, no further action is required. However, if recent HCV exposure is suspected, a test for HCV RNA (test code 95952) is suggested. For additional information please refer to http://education.Superbly/faq/GHA78f3 (This link is being provided for informational/ educational purposes only.) Blood specimen (specimen) Blood specimen / Unknown 08/05/2018 12:01 PM EST 08/05/2018 12:02 PM EST Narrative [facility] - 08/06/2018 4:39 AM EST FASTING:NO FASTING: NO Resulting Agency Comment Performing Organization Information: ?Site ID: [id number] ?Name: [facility] ?Address: [address], [place] [address] ?Director: Nik Swanson MD Rommel Galdamez MD LAB BLOOD ORDERABLES [facility] [address], [place] [address] from Last 3 Months or Most Recently Relevant to Health Maintenance Care Teams Pie Dough Roller Relationship Specialty Start Date End Date Pcp, No [address] [place] [address] PCP - General 12/28/20 Rafael Suárez MD Surgery, Colorectal 03/07/18 Nenita Desir MD Cardiovascular Disease 03/07/18 Sherry Schwartz DO Pulmonary Medicine 04/14/19 Danie Mobley MD Pulmonary Medicine 05/06/19 Tila Russell MD Otolaryngology 07/14/19 Dalton Campos MD Cardiovascular Disease 01/27/20 Vinicio Bell DMD Dentistry 04/15/20 Dalton Castrejon MD [address] [place] [address] [address] [place] [address] Ophthalmology 04/15/20 Colin Ervin DPM [address] [place] [address] Podiatry 04/15/20
--- OUTSIDE RECORDS SUMMARY | 2024-08-21 12:02 | XMS_ITS | Encounter Summary ---
Author Organization [facility] Address [address] [place] [address] Care Team Providers Care Mechanical Facilities Technician Name Role Phone Rafael Suárez MD Unavailable + [phone] Nenita Desir MD Unavailable Sherry Schwartz DO Unavailable Unavailable Danie Mobley MD Primary Care Provider [phone] Danie Mobley MD Unavailable [phone] Rommel Galdamez MD Primary Care Provider Unavail able Tila Russell MD Unavailable Unavailable Rommel Galdamez MD Unavailable Unavailable Ariana Mckinley MD Primary Care Provider [phone] Dalton Campos MD Unavailable [phone] Vinicio Bell DMD Unavailable [phone] Dalton Castrejon MD Unavailable [phone] Colin Ervin DPM Unavailable [phone] Pcp, No Primary Care Provider UnavailAriana Connor MD Unavailable Encounter Details Date Type Department Care Team (Late st Contact Info) Description 05/06/2019 Scanned Document [address], [address] [place] [address] Rommel Galdamez MD Social History Tobacco Use Types Packs/Day Years Used Date Smoking Tobacco: Never Smokeless Tobacco: Never Alcohol Use Standard Drinks/Week Comments Yes 0 (1 standard drink = 0.6 oz pur e alcohol) SOCIALLY Sex and Gender Information Value Date Recorded Sex Assigned at Not on file Gender Identity Male 12/09/2022 10:23 AM EDT Sexual Orientation Heterosexual (straight) 12/09 10:23 AM EDT documented as of this encounter Plan of Treatment Not on file documented as of this encounter Visit Diagnoses Not on filedocumented in this encounter Care Teams Mechanical Facilities Technician Relationship Specialty Start Date End Date Danie Mobley MD PCP - General Pulmonary Medicine 05/06/19 06/25/19 Rommel Galdamez MD PCP - General Internal Medicine 06/26/19 09/25/19 Rommel Galdamez MD PCP - [place] Commercial Attributed 10/09/18 05/10/19 Ariana Mckinley MD [address] [place] [address] PCP - General Internal Medicine 09/26/19 12/27/20 [facility], [place] [address] PCP - General 12/28/20 Ariana Mckinley MD [address] [place] [address] PCP - [place] Commercial Attributed 10/09/20 11/08/20 Rafael Suárez MD Surgery, Colorectal 03/07/18 Nenita Desir MD Cardiovascular Disease 03/07/18 Sherry Schwartz DO Pulmonary Medicine 04/14/19 Danie Mobley MD Pulmonary Medicine 05/06/19 Tila Russell MD Otolaryngology 07/14/19 Dalton Campos MD [address] [place] [address] Cardiovascular Disease 01/27/20 Vinicio Bell DMD [address] [place] [address] Dentistry 04/15/20 Dalton Castrejon MD [address] [place] [address] Ophthalmology 04/15/20 Colin Ervin DPM [address] [place] [address] Podiatry 04/15/20 documented as of this encounter
--- OUTSIDE RECORDS SUMMARY | 2024-08-21 12:02 | XMS_ITS | Encounter Summary ---
Author Organization [facility] Address [address] [place] [address] Care Team Providers Care Net Lead Developer Name Role Phone Raafel Suárez MD Unavailable + [phone] Nenita Desir MD Unavailable Sherry Schwartz DO Unavailable Unavailable Danie Mobley MD Unavailable [phone] Tila Russell MD Unavailable Unavailable Ariana Mckinley MD Primary Care Provider Dalton Campos MD Unavailable [phone] Vinicio Bell DMD Unavailable [phone] Dalton Castrejon MD Unavailable [phone] Colin Ervin DPM Unavailable [phone] Pcp, No Primary Care Provider UnavailAriana Connor MD Unavailable Encounter Details Date Type Department Care Team (Late st Contact Info) Description 01/27/2020 Scanned Document [facility] 163 [facility], [address] [place] [address] Ariana Mckinley MD [address] [place], [place] [address] Social History Tobacco Use Types Packs/Day Years [...] on filedocumented in this encounter Care Teams Net Lead Developer Relationship Specialty Start Date End Date Ariana Mckinley MD [address] [place] [address] PCP - General Internal Medicine 09/26/19 12/27/20 Pcp, [address] [address] PCP - General 12/28/20 Ariana Mckinley MD [address] [place] [address] PCP - [place] Commercial Attributed 10/09/20 11/08/20 Rafael Suárez MD Surgery, Colorectal 03/07/18 Nenita Desir MD Cardiovascular Disease 03/07/18 Sherry Schwartz DO Pulmonary Medicine 04/14/19 Danie Mobley MD Pulmonary Medicine 05/06/19 Tila Russell MD Otolaryngology 07/14/19 Dalton Campos MD [address] [place] [address] Cardiovascular Disease 01/27/20 Vinicio Bell DMD [address] [place] [address] Dentistry 04/15/20 Dalton Castrejon MD [address] [place] [address] 100 [place] [address] Ophthalmology 04/15/20 Colin Ervin DPM [address] [place] [address] Podiatry 04/15/20 documented as of this encounter
--- OUTSIDE RECORDS SUMMARY | 2024-08-21 12:02 | XMS_ITS | Encounter Summary ---
Author Organization [facility] Address [address] [place] [address] Care Team Providers Care Staging Technician Name Role Phone Rommel Galdamez MD Primary Care Provider Unavail able Rafael Suárez MD Unavailable +- [phone] Nenita Desir MD Unavailable Sherry Schwartz DO Unavailable Unavailable Danie Mobley MD Primary Care Provider [phone] Danie Mobley MD Unavailable [phone] Rommel Galdamez MD Primary Care Provider Unavail able Tila Russell MD Unavailable Unavailable Rommel Galdamez MD Unavailable Unavailable Ariana Mckinley MD Primary Care Provider [phone] Dalton Campos MD Unavailable [phone] Vinicio Bell DMD Unavailable [phone] Dalton Castrejon MD Unavailable [phone] Colin Ervin DPM Unavailable [phone] Pcp, No Primary Care Provider UnavailAriana Connor MD Unavailable Encounter Details Date Type Department Care Team (Late st Contact Info) Description 04/15/2019 Scanned Document [address], [address] [place] [address] Rommel Galdamez MD Social History [...] on filedocumented in this encounter Care Teams Staging Technician Relationship Specialty Start Date End Date Rommel Galdamez MD PCP - General Internal Medicine 04/18/17 05/05/19 Danie Mobley MD PCP - General Pulmonary Medicine 05/06/19 06/25/19 Rommel Galdamez MD PCP - General Internal Medicine 06/26/19 09/25/19 Rommel Galdamez MD PCP - [place] Commercial Attributed 10/09/18 05/10/19 Ariana Mckinley MD [address] [place] [address] PCP - General Internal Medicine 09/26/19 12/27/20 Pcp, [address] [address] PCP - General 12/28/20 Ariana Mckinley MD [address] [place] [address] PCP - [place] Commercial Attributed 10/09/20 11/08/20 Rafael Suárez MD Surgery, Colorectal 03/07/18 Nenita Desir MD Cardiovascular Disease 03/07/18 Sherry Schwartz DO Pulmonary Medicine 04/14/19 Danie Mobley MD Pulmonary Medicine 05/06/19 Tila Russell MD Otolaryngology 07/14/19 Dalton Campos MD [address] [place] [address] Cardiovascular Disease 01/27/20 Vinicio Bell DMD [address] [place] [address] Dentistry 04/15/20 Dalton Castrejon MD [address] [place] [address] Ophthalmology 04/15/20 Colin Ervin DPM [address] [place] [address] Podiatry 04/15/20 documented as of this encounter
--- OUTSIDE RECORDS SUMMARY | 2024-08-21 12:02 | XMS_ITS | Encounter Summary ---
Author Organization [facility] Address [address] [place] [address] Care Team Providers Care Cook Pressure Name Role Phone Rafael Suárez MD Unavailable [phone] Nenita Desir MD Unavailable Sherry Schwartz DO Unavailable Unavailable Danie Mobley MD Unavailable [phone] Tila Russell MD Unavailable Unavailable Dalton Campos MD Unavailable [phone] Vinicio Bell DMD Unavailable [phone] Dalton Castrejon MD Unavailable Colin Ervin DPM Unavailable [phone] Pcp, No Primary Care Provider Unavailabl e Encounter Details Date Type Department Care Team (Late st Contact Info) Description 01/20/2021 Scanned Document [facility] 163 [facility], [address] [place] [address] Ariana Mckinley MD [address] [place] [address] Social History Tobacco Use Types Packs/Day Years [...] on filedocumented in this encounter Care Teams Cook Pressure Relationship Specialty Start Date End Date Pcp, No [address] [place] [address] PCP - General 12/28/20 Rafael Suárez MD Surgery, Colorectal 03/07/18 Nenita Desir MD Cardiovascular Disease 03/07/18 Sherry Schwartz DO Pulmonary Medicine 04/14/19 Danie Mobley MD Pulmonary Medicine 05/06/19 Tila Russell MD Otolaryngology 07/14/19 Dalton Campos MD Cardiovascular Disease 01/27/20 Vinicio Bell DMD Dentistry 04/15/20 Dalton Castrejon MD [address] [place] [address] 100 [place] [address] Ophthalmology 04/15/20 Colin Ervin DPM [address] [place] [address] Podiatry 04/15/20 documented as of this encounter
--- OUTSIDE RECORDS SUMMARY | 2024-08-21 12:02 | XMS_ITS | Encounter Summary ---
Author Organization [facility] Address [address] [place] [address] Care Team Providers Care Facilities Engineering Manager Name Role Phone Rafael Suárez MD Unavailable + [phone] Nenita Desir MD Unavailable Sherry Schwartz DO Unavailable Unavailable Danie Mobley MD Unavailable [phone] Tila Russell MD Unavailable Unavailable Ariana Mckinley MD Primary Care Provider [phone] Dalton Campos MD Unavailable [phone] Vinicio Bell DMD Unavailable [phone] Dalton Castrejon MD Unavailable [phone] Colin Ervin DPM Unavailable [phone] Pcp, No Primary Care Provider UnavailAriana Connor MD Unavailable Encounter Details Date Type Department Care Team (Late st Contact Info) Description 06/18/2020 Scanned Document [facility] 163 [facility], [address] [place] [address] Ariana Mckinley MD [address] [place], [place] [id number] Social History Tobacco Use Types Packs/Day Years [...] on filedocumented in this encounter Care Teams Facilities Engineering Manager Relationship Specialty Start Date End Date Ariana Mckinley MD [address] [place] [address] PCP - General Internal Medicine 09/26/19 12/27/20 Pcp, [place] [address] PCP - General 12/28/20 Ariana Mckinley MD [address] [place] [address] PCP - [place] Commercial Attributed 10/09/20 11/08/20 Rafael Suárez MD Surgery, Colorectal 03/07/18 Nenita Desir MD Cardiovascular Disease 03/07/18 Sherry Schwartz DO Pulmonary Medicine 04/14/19 Danie Mobley MD Pulmonary Medicine 05/06/19 Tila Russell MD Otolaryngology 07/14/19 Dalton Campos MD [address] [place] [address] Cardiovascular Disease 01/27/20 Vinicio Bell DMD [address] [place] [address] Dentistry 04/15/20 Dalton Castrejon MD [address] [place] [address] [address] [place] [address] Ophthalmology 04/15/20 Colin Ervin DPM [address] [place] [address] Podiatry 04/15/20 documented as of this encounter
--- OUTSIDE RECORDS SUMMARY | 2024-08-21 12:02 | XMS_ITS | Encounter Summary ---
Author Organization [facility] Address [address] [place] [address] Care Team Providers Care Adult Health Clinical Nurse Specialist Name Role Phone Rafael Suárez MD Unavailable + [phone] Nenita Desir MD Unavailable Sherry Schwartz DO Unavailable Unavailable Danie Mobley MD Unavailable [phone] Tila Russell MD Unavailable Unavailable Ariana Mckinley MD Primary Care Provider [phone] Dalton Campos MD Unavailable [phone] Vinicio Bell DMD Unavailable [phone] Dalton Castrejon MD Unavailable [phone] Colin Ervin DPM Unavailable [phone] Pcp, No Primary Care Provider UnavailAriana Connor MD Unavailable Encounter Details Date Type Department Care Team (Late st Contact Info) Description 10/01/2019 Scanned Document [facility] 163 [facility], [address] [place] [address] Ariana Mckinley MD [address] [place], [place] [address] Social History Tobacco Use Types Packs/Day Years [...] on filedocumented in this encounter Care Teams Adult Health Clinical Nurse Specialist Relationship Specialty Start Date End Date Ariana Mckinley MD [address] [place] [address] PCP - General Internal Medicine 09/26/19 12/27/20 Pcp, [address] [address] PCP - General 12/28/20 Ariana Mckinley MD [address] [place] [address] PCP - [place] Commercial Attributed 10/09/20 11/08/20 Rafael Suárez MD Surgery, Colorectal 03/07/18 Nenita Desir MD Cardiovascular Disease 03/07/18 Sherry Schwartz DO Pulmonary Medicine 04/14/19 Danie Mobley MD Pulmonary Medicine 05/06/19 Tila Russell MD Otolaryngology 07/14/19 Dalton Campos MD [address] [place] [address] Cardiovascular Disease 01/27/20 Vinicio Bell DMD [address] [place] [address] Dentistry 04/15/20 Dalton Castrejon MD [address] [place] [address] [address] [place] [address] Ophthalmology 04/15/20 Colin Ervin DPM [address] [place] [address] Podiatry 04/15/20 documented as of this encounter
--- OUTSIDE RECORDS SUMMARY | 2024-08-21 12:02 | XMS_ITS | Encounter Summary ---
Author Organization Formerly [facility] Address [address] [place] [address] Care Team Providers Care Cat Scan Technologist Name Role Phone Rafael Suárez MD Unavailable +- [phone] Nenita Desir MD Unavailable Sherry Schwartz DO Unavailable Unavailable Danie Mobley MD Unavailable [phone] Tila Russell MD Unavailable Unavailable Dalton Campos MD Unavailable [phone] Vinicio Bell DMD Unavailable +[phone] Dalton Castrejon MD Unavailable [phone] Colin Ervin DPM Unavailable [phone] Pcp, No Primary Care Provider Unavailabl e Encounter Details Date Type Department Care Team (Late st Contact Info) Description 10/13/[address] [facility] PRIMARY [facility]ARE SCAN Primary Care, Scan Social History Tobacco Use Types Packs/Day Years [...] on filedocumented in this encounter Care Teams Cat Scan Technologist Relationship Specialty Start Date End Date Pcp, No [address] [place] [address] PCP - General 12/28/20 Rafael Suárez MD Surgery, Colorectal 03/07/18 Nenita Desir MD Cardiovascular Disease 03/07/18 Sherry Schwartz DO Pulmonary Medicine 04/14/19 Danie Mobley MD Pulmonary Medicine 05/06/19 Tila Russell MD Otolaryngology 07/14/19 Dalton Campos MD Cardiovascular Disease 01/27/20 Vinicio Bell DMD Dentistry 04/15/20 Dalton Castrejon MD [address] [place] [address] 100 [place] [address] Ophthalmology 04/15/20 Colin Ervin DPM [address] [place] [address] Podiatry 04/15/20 documented as of this encounter
--- OUTSIDE RECORDS SUMMARY | 2024-08-21 12:02 | XMS_ITS | Encounter Summary ---
Author Organization [facility] Address [address] [place] [address] Care Team Providers Care Cardiovascular Physician Assistant Name Role Phone Rafael Suárez MD Unavailable +[phone] Nenita Desir MD Unavailable Sherry Schwartz DO Unavailable Unavailable Danie Mobley MD Unavailable [phone] Tila Russell MD Unavailable Unavailable Dalton Campos MD Unavailable Vinicio Bell DMD Unavailable [phone] Dalton Castrejon MD Unavailable Colin Ervin DPM Unavailable [phone] Pcp, No Primary Care Provider Unavailabl e Reason for Visit * Reason Comments Medication Refill Encounter Details Date Type Department Care Team (Late st Contact Info) Description 12/13/2022 Refill [facility] [place] [address] [facility], [address] [place] [phone] Ariana Mckinley MD [address] [place] [address] Erectile dysfunction, unspecified erectile dysfunction type Social History Tobacco Use Types Packs/Day Years [...] as of this encounter Visit Diagnoses Diagnosis Erectile dysfunction, unspecified erectile dysfunction type documented in this encounter Care Teams Cardiovascular Physician Assistant Relationship Specialty Start Date End Date Pcp, No 80 [place] [address] PCP - General 12/28/20 Rafael Suárez MD Surgery, Colorectal 03/07/18 Nenita Desir MD Cardiovascular Disease 03/07/18 Sherry Schwartz DO Pulmonary Medicine 04/14/19 Danie Mobley MD Pulmonary Medicine 05/06/19 Tila Russell MD Otolaryngology 07/14/19 Dalton Campos MD Cardiovascular Disease 01/27/20 Vinicio Bell DMD Dentistry 04/15/20 Dalton Castrejon MD [address] [place] [address] Ophthalmology 04/15/20 Colin Ervin DPM [address] [place] [address] Podiatry 04/15/20 documented as of this encounter
--- OUTSIDE RECORDS SUMMARY | 2024-08-21 12:02 | XMS_ITS | Encounter Summary ---
Author Organization [facility] Address [address] [place] [address] Care Team Providers Care Burner Tender Name Role Phone Provider, Jeanine HENDERSON Primary Care Provider Un available Rommel Galdamez MD Primary Care Provider Unavail able Rafael Suárez MD Unavailable +- [phone] Nenita Desir MD Unavailable Sherry Schwartz DO Unavailable Unavailable Danie Mobley MD Primary Care Provider [phone] Danie Mobley MD Unavailable [phone] Rommel Galdamez MD Primary Care Provider Unavail able Tila Russell MD Unavailable Unavailable Rommel Galdamez MD Unavailable Unavailable Ariana Mckinley MD Primary Care Provider +[phone] Dalton Campos MD Unavailable [phone] Vinicio Bell DMD Unavailable [phone] Dalton Castrejon MD Unavailable [phone] Colin Ervin DPM Unavailable [phone] Pcp, No Primary Care Provider Unavailabl Ariana Woodson MD Unavailable Encounter Details Date Type Department Care Team (Late st Contact Info) Description 03/14/2017 Scanned Document [address], [address] [place] [address] ProviderJeanine MD Social History Tobacco Use Types Packs/Day [...] on filedocumented in this encounter Care Teams Burner Tender Relationship Specialty Start Date End Date Jeanine Ortiz MD PCP - General 11/28/16 04/17/17 Rommel Galdamez MD PCP - General Internal Medicine 04/18/17 05/05/19 Danie Mobley MD PCP - General Pulmonary Medicine 05/06/19 06/25/19 Rommel Galdamez MD PCP - General Internal Medicine 06/26/19 09/25/19 Rommel Galdamez MD PCP - [place] Commercial Attributed 10/09/18 05/10/19 Ariana Mckinley MD [address] [place] [address] PCP - General Internal Medicine 09/26/19 12/27/20 Pcp, [address] [address] PCP - General 12/28/20 Ariana Mckinley MD [address] [place] [address] PCP - [place] Commercial Attributed 10/09/20 11/08/20 Rafael Suárez MD Surgery, Colorectal 03/07/18 Nenita Desir MD Cardiovascular Disease 03/07/18 Sherry Schwartz DO Pulmonary Medicine 04/14/19 Danie Mobley MD Pulmonary Medicine 05/06/19 Tila Russell MD Otolaryngology 07/14/19 Dalton Campos MD [address] [place] [address] Cardiovascular Disease 01/27/20 Vinicio Bell, DMD [address] [place] [address] Dentistry 04/15/20 Dalton Castrejon MD [address] [place] [address] 100 [place] [address] Ophthalmology 04/15/20 Colin Ervin DPM [address] [place] [address] Podiatry 04/15/20 documented as of this encounter
--- OUTSIDE RECORDS SUMMARY | 2024-08-21 12:02 | XMS_ITS | Encounter Summary ---
Author Organization [facility] Address [address] [place] [address] Care Team Providers Care Compensation Supervisor Name Role Phone Rafael Suárez MD Unavailable + [phone] Nenita Desir MD Unavailable Sherry Schwartz DO Unavailable Unavailable Danie Mobley MD Unavailable [phone] Tila Russell MD Unavailable Unavailable Ariana Mckinley MD Primary Care Provider Dalton Campos MD Unavailable [phone] Vinicio Bell DMD Unavailable [phone] Dalton Castrejon MD Unavailable [phone] Colin Ervin DPM Unavailable [phone] Pcp, No Primary Care Provider UnavailAriana Connor MD Unavailable Reason for Visit * Reason Onset Date Comments Medication Refill 05/25/2020 Encounter Details Date Type Department Care Team (Late st Contact Info) Description 05/25/2020 Refill [facility] 163 [facility], [address] [place] [phone] Ariana Mckinley MD 163 [place], [place] 6[address] Erectile dysfunction, unspecified erectile dysfunction type Social [...] type documented in this encounter Care Teams Compensation Supervisor Relationship Specialty Start Date End Date Ariana Mckinley MD [address] [place] [address] PCP - General Internal Medicine 09/26/19 12/27/20 [facility], [place] [address] PCP - General 12/28/20 Ariana Mckinley MD [address] [place] [address] PCP - [place] Commercial Attributed 10/09/20 11/08/20 Rafael Suárez MD Surgery, Colorectal 03/07/18 Nenita Desir MD Cardiovascular Disease 03/07/18 Sherry Schwartz DO Pulmonary Medicine 04/14/19 Danie Mobley MD Pulmonary Medicine 05/06/19 Tila Russell MD Otolaryngology 07/14/19 Dalton Campos MD [address] [place] [address] 59[address] Cardiovascular Disease 01/27/20 Vinicio Bell DMD [address] [place] [address] Dentistry 04/15/20 Dalton Castrejon MD [address] [place] [address] Ophthalmology 04/15/20 Colin Ervin DPM [address] [place] [address] Podiatry 04/15/20 documented as of this encounter
--- OUTSIDE RECORDS SUMMARY | 2024-08-21 12:02 | XMS_ITS | Encounter Summary ---
Author Organization [facility] Address [address] [place] [address] Care Team Providers Care Catering Coordinator Name Role Phone Rafael Suárez MD Unavailable + [phone] Nenita Desir MD Unavailable Sherry Schwartz DO Unavailable Unavailable Danie Mobley MD Unavailable Tila Russell MD Unavailable Unavailable Ariana Mckinley MD Primary Care Provider [phone] Dalton Campos MD Unavailable [phone] Vinicio Bell DMD Unavailable [phone] Dalton Castrejon MD Unavailable [phone] Colin Ervin DPM Unavailable [phone] Pcp, No Primary Care Provider UnavailAriana Connor MD Unavailable Reason for Visit * Reason Comments Medication Refill Encounter Details Date Type Department Care Team (Late st Contact Info) Description 10/27/2020 [address]ill [facility] [address] [facility], [address] [place] [phone] Ariana Mckinley MD 163 [place], [place] 5456[address] Elevated cholesterol Social History Tobacco Use Types [...] hypercholesterolemia documented in this encounter Care Teams Catering Coordinator Relationship Specialty Start Date End Date Ariana Mckinley MD [address] [place] [address] PCP - General Internal Medicine 09/26/19 12/27/20 Pcp, [place] [address] PCP - General 12/28/20 Ariana Mckinley MD [address] [place] [address] PCP - [place] Commercial Attributed 10/09/20 11/08/20 Rafael Suárez MD Surgery, Colorectal 03/07/18 Nenita Desir MD Cardiovascular Disease 03/07/18 Sherry Schwartz DO Pulmonary Medicine 04/14/19 Danie Mobley MD Pulmonary Medicine 05/06/19 Tila Russell MD Otolaryngology 07/14/19 Dalton Campos MD [address] [place], [place] [address] Cardiovascular Disease 01/27/20 Vinicio Bell DMD [address] [place] [id number] Dentistry 04/15/20 Dalton Castrejon MD [address] [place] [address] [address] [place] [address] Ophthalmology 04/15/20 Colin Ervin DPM [address] [place] [address] [id number] Podiatry 04/15/20 documented as of this encounter
--- OUTSIDE RECORDS SUMMARY | 2024-08-21 12:02 | XMS_ITS | Encounter Summary ---
Author Organization [facility] Address [address] [place] [address] Care Team Providers Care Medical Scientific Liaison Name Role Phone Rafael Suárez MD Unavailable +- [phone] Nenita Desir MD Unavailable Sherry Schwartz DO Unavailable Unavailable Danie Mobley MD Unavailable [phone] Rommel Galdamez MD Primary Care Provider Unavail able Tila Russell MD Unavailable Unavailable Ariana Mckinley MD Primary Care Provider Dalton Campos MD Unavailable [phone] Vinicio Bell DMD Unavailable [phone] Dalton Castrejon MD Unavailable [phone] Colin Ervin DPM Unavailable [phone] Pcp, No Primary Care Provider UnavailAriana Connor MD Unavailable Encounter Details Date Type Department Care Team (Late st Contact Info) Description 07/14/2019 Scanned Document [address], [address] [place] [phone] Rommel Galdamez MD Social History Tobacco Use [...] on filedocumented in this encounter Care Teams Medical Scientific Liaison Relationship Specialty Start Date End Date Rommel Galdamez MD PCP - General Internal Medicine 06/26/19 09/25/19 Ariana Mckinley MD [address] [place] [address] PCP - General Internal Medicine 09/26/19 12/27/20 Pcp, [address] [address] PCP - General 12/28/20 Ariana Mckinley MD [address] [place] [address] PCP - [place] Commercial Attributed 10/09/20 11/08/20 Rafael Suárez MD Surgery, Colorectal 03/07/18 Nenita Desir MD Cardiovascular Disease 03/07/18 Sherry Schwartz DO Pulmonary Medicine 04/14/19 Danie Mobley MD Pulmonary Medicine 05/06/19 Tila Russell MD Otolaryngology 07/14/19 Dalton Campos MD [address] [place] [address] Cardiovascular Disease 01/27/20 Vinicio Bell DMD [address] [place] [address] [id number] Dentistry 04/15/20 Dalton Castrejon MD [address] [place] [address] 100 [place] [address] Ophthalmology 04/15/20 Colin Ervin DPM [address] [place] [address] Podiatry 04/15/20 documented as of this encounter
--- OUTSIDE RECORDS SUMMARY | 2024-08-21 12:02 | XMS_ITS | Encounter Summary ---
Author Organization [facility] Address [address] [place] [address] Care Team Providers Care Manager Financial Planning Name Role Phone Rafael Suárez MD Unavailable +- [phone] Nenita Desir MD Unavailable Sherry Schwartz DO Unavailable Unavailable Danie Mobley MD Unavailable [phone] Tila Russell MD Unavailable Unavailable Dalton Campos MD Unavailable [phone] Vinicio Bell DMD Unavailable +[phone] Dalton Castrejon MD Unavailable [phone] Colin Ervin DPM Unavailable [phone] Pcp, No Primary Care Provider Unavailabl e Encounter Details Date Type Department Care Team (Late st Contact Info) Description 10/23/2022 Scanned Document [facility] SCAN Primary Care, Scan [...] on filedocumented in this encounter Care Teams Manager Financial Planning Relationship Specialty Start Date End Date Pcp, No [address] [place] [address] PCP - General 12/28/20 Rafael Suárez MD Surgery, Colorectal 03/07/18 Nenita Desir MD Cardiovascular Disease 03/07/18 Sherry Schwartz DO Pulmonary Medicine 04/14/19 Danie Mobley MD Pulmonary Medicine 05/06/19 Tila Russell MD Otolaryngology 07/14/19 Dalton Campos MD Cardiovascular Disease 01/27/20 Vinicio Bell DMD Dentistry 04/15/20 Dalton Castrejon MD [address] [place] [address] 100 [place] [address] Ophthalmology 04/15/20 Colin Ervin DPM [address] [place] [address] Podiatry 04/15/20 documented as of this encounter
--- OUTSIDE RECORDS SUMMARY | 2024-08-21 12:02 | XMS_ITS | Encounter Summary ---
Author Organization [facility] Address [address] [place] [address] Care Team Providers Care Manager Merchandise Name Role Phone Rafael Suárez MD Unavailable +- [phone] Nenita Desir MD Unavailable Sherry Schwartz DO Unavailable Unavailable Danie Mobley MD Unavailable [phone] Rommel Galdamez MD Primary Care Provider Unavail able Tila Russell MD Unavailable Unavailable Ariana Mckinley MD Primary Care Provider [phone] Dalton Campos MD Unavailable [phone] Vinicio Bell DMD Unavailable [phone] Dalton Castrejon MD Unavailable [phone] Colin Ervin DPM Unavailable [phone] Pcp, No Primary Care Provider UnavailAriana Connor MD Unavailable Encounter Details Date Type Department Care Team (Late st Contact Info) Description 08/01/2019 Scanned Document [address], [address] [place] [phone] Rommel Galdamez MD Social History Tobacco Use [...] filedocumented in this encounter Care Teams Manager Merchandise Relationship Specialty Start Date End Date Rommel Galdamez MD PCP - General Internal Medicine 06/26/19 09/25/19 Ariana Mckinley MD [address] [place] [address] PCP - General Internal Medicine 09/26/19 12/27/20 Pcp, [address] [address] PCP - General 12/28/20 Ariana Mckinley MD [address] [place] [address] PCP - [place] Commercial Attributed 10/09/20 11/08/20 Rafael Suárez MD Surgery, Colorectal 03/07/18 Nenita Desir MD Cardiovascular Disease 03/07/18 Sherry Schwartz DO Pulmonary Medicine 04/14/19 Danie Mobley MD Pulmonary Medicine 05/06/19 Tila Russell MD Otolaryngology 07/14/19 Dalton Campos MD [address] [place] [address] Cardiovascular Disease 01/27/20 Vinicio Bell DMD [address] [place] [id number] Dentistry 04/15/20 Dalton Castrejon MD [address] [place] [address] 100 [place] [address] Ophthalmology 04/15/20 Colin Ervin DPM [address] [place] [address] Podiatry 04/15/20 documented as of this encounter
--- OUTSIDE RECORDS SUMMARY | 2024-08-21 12:03 | XMS_ITS | Encounter Summary ---
Author Organization [facility] Address [address] [place] [address] Care Team Providers Care Director Of Corporate Communications Name Role Phone Rommel Galdamez MD Primary Care Provider Unavail able Rafael Suárez MD Unavailable +- [phone] Nenita Desir MD Unavailable Sherry Schwartz DO Unavailable Unavailable Danie Mobley MD Primary Care Provider [phone] Danie Mobley MD Unavailable [phone] Rommel Galdamez MD Primary Care Provider Unavail able Tila Russell MD Unavailable Unavailable Rommel Galdamez MD Unavailable Unavailable Ariana Mckinley MD Primary Care Provider [phone] Dalton Campos MD Unavailable +[phone] Vinicio Bell DMD Unavailable [phone] Dalton Castrejon MD Unavailable [phone] Colin Ervin DPM Unavailable [phone] Pcp, No Primary Care Provider UnavailAriana Connor MD Unavailable Encounter Details Date Type Department Care Team (Late st Contact Info) Description 01/17/2018 Scanned Document [address], [address] [place] [address] Rommel Galdamez MD Social History [...] on filedocumented in this encounter Care Teams Director Of Corporate Communications Relationship Specialty Start Date End Date Rommel Galdamez MD PCP - General Internal Medicine 04/18/17 05/05/19 Danie Mobley MD PCP - General Pulmonary Medicine 05/06/19 06/25/19 Rommel Galdamez MD PCP - General Internal Medicine 06/26/19 09/25/19 Rommel Galdamez MD PCP - [place] Commercial Attributed 10/09/18 05/10/19 Ariana Mckinley MD [address] [place] [address] PCP - General Internal Medicine 09/26/19 12/27/20 Pcp, [address] [place] [address] PCP - General 12/28/20 Ariana Mckinley MD [address] [place] [address] PCP - [place] Commercial Attributed 10/09/20 11/08/20 Rafael Suárez MD Surgery, Colorectal 03/07/18 Nenita Desir MD Cardiovascular Disease 03/07/18 Sherry Schwartz DO Pulmonary Medicine 04/14/19 Danie Mobley MD Pulmonary Medicine 05/06/19 Tila Russell MD Otolaryngology 07/14/19 Dalton Campos MD [address] [place] [address] Cardiovascular Disease 01/27/20 Vinicio Bell DMD [address] [place], [place] [address] Dentistry 04/15/20 Dalton Castrejon MD [address] [place] [address] Ophthalmology 04/15/20 Colin Ervin DPM [address] [place] [address] Podiatry 04/15/20 documented as of this encounter
--- OUTSIDE RECORDS SUMMARY | 2024-08-21 12:03 | XMS_ITS | Encounter Summary ---
Author Organization [facility] Address [address] [place] [address] Care Team Providers Care Senior Partner Name Role Phone Rommel Galdamez MD Primary Care Provider Unavail able Rafael Suárez MD Unavailable +- [phone] Nenita Desir MD Unavailable Sherry Schwartz DO Unavailable Unavailable Danie Mobley MD Primary Care Provider [phone] Danie Mobley MD Unavailable [phone] Rommel Galdamez MD Primary Care Provider Unavail able Tila Russell MD Unavailable Unavailable Rommel Galdamez MD Unavailable Unavailable Ariana Mckinley MD Primary Care Provider [phone] Dalton Campos MD Unavailable [phone] Vinicio Bell DMD Unavailable [phone] Dalton Castrejon MD Unavailable [phone] Colin Ervin DPM Unavailable [phone] Pcp, No Primary Care Provider UnavailAriana Connor MD Unavailable Encounter Details Date Type Department Care Team (Late st Contact Info) Description 04/26/2017 Scanned Document [address], [address] [place] [address] Rommel Galdamez MD Social History [...] on filedocumented in this encounter Care Teams Senior Partner Relationship Specialty Start Date End Date Rommel Galdamez MD PCP - General Internal Medicine 04/18/17 05/05/19 Danie Mobley MD PCP - General Pulmonary Medicine 05/06/19 06/25/19 Rommel Galdamez MD PCP - General Internal Medicine 06/26/19 09/25/19 Rommel Galdamez MD PCP - [place] Commercial Attributed 10/09/18 05/10/19 Ariana Mckinley MD [address] [place] [address] PCP - General Internal Medicine 09/26/19 12/27/20 Pcp, No [address] [place] [address] PCP - General 12/28/20 Ariana Mckinley MD [address] [place] [address] PCP - [place] Commercial Attributed 10/09/20 11/08/20 Rafael Suárez MD Surgery, Colorectal 03/07/18 Nenita Desir MD Cardiovascular Disease 03/07/18 Sherry Schwartz DO Pulmonary Medicine 04/14/19 Danie Mobley MD Pulmonary Medicine 05/06/19 Tila Russell MD Otolaryngology 07/14/19 Dalton Campos MD [address] [place] [address] Cardiovascular Disease 01/27/20 Vinicio Bell DMD [address] [place] [address] Dentistry 04/15/20 Dalton Castrejon MD [address] [place] [address] Ophthalmology 04/15/20 Colin Ervin DPM [address] [place] [address] Podiatry 04/15/20 documented as of this encounter
--- OUTSIDE RECORDS SUMMARY | 2024-08-21 12:03 | XMS_ITS | Encounter Summary ---
Author Organization [facility] Address [address] [place] [address] Care Team Providers Care Oncology Navigator Name Role Phone Rommel Galdamez MD Primary Care Provider Unavail able Rafael Suárez MD Unavailable +- [phone] Nenita Desir MD Unavailable Sherry Schwartz DO Unavailable Unavailable Danie Mobley MD Primary Care Provider [phone] Danie Mobley MD Unavailable [phone] Rommel Galdamez MD Primary Care Provider Unavail able Tila Russell MD Unavailable Unavailable Rommel Galdamez MD Unavailable Unavailable Ariana Mckinley MD Primary Care Provider +[phone] Dalton Campos MD Unavailable +[phone] Vinicio Bell DMD Unavailable [phone] Dalton Castrejon MD Unavailable [phone] Colin Ervin DPM Unavailable [phone] Pcp, No Primary Care Provider UnavailAriana Connor MD Unavailable Encounter Details Date Type Department Care Team (Late st Contact Info) Description 09/24/2018 Scanned Document [address], [address] [place] [address] Rommel Galdamez MD Social History [...] on filedocumented in this encounter Care Teams Oncology Navigator Relationship Specialty Start Date End Date Rommel Galdamez MD PCP - General Internal Medicine 04/18/17 05/05/19 Danie Mobley MD PCP - General Pulmonary Medicine 05/06/19 06/25/19 Rommel Galdamez MD PCP - General Internal Medicine 06/26/19 09/25/19 Rommel Galdamez MD PCP - [place] Commercial Attributed 10/09/18 05/10/19 Ariana Mckinley MD [address] [place] [address] PCP - General Internal Medicine 09/26/19 12/27/20 Pcp, [address] [place] [address] PCP - General 12/28/20 Ariana Mckinley MD [address] [place] [address] PCP - [place] Commercial Attributed 10/09/20 11/08/20 Rafael Suárez MD Surgery, Colorectal 03/07/18 Nenita Desir MD Cardiovascular Disease 03/07/18 Sherry Schwartz DO Pulmonary Medicine 04/14/19 Danie Mobley MD Pulmonary Medicine 05/06/19 Tila Russell MD Otolaryngology 07/14/19 Dalton Campos MD [address] [place] [address] Cardiovascular Disease 01/27/20 Vinicio Bell DMD [address] [place], [place] [address] Dentistry 04/15/20 Dalton Castrejon MD [address] [place] [address] Ophthalmology 04/15/20 Colin Ervin DPM [address] [place] [address] Podiatry 04/15/20 documented as of this encounter
--- OUTSIDE RECORDS SUMMARY | 2024-08-21 12:03 | XMS_ITS | Encounter Summary ---
Author Organization [facility] Address [address] [place] [address] Care Team Providers Care Relationship Counselor Name Role Phone Rommel Galdamez MD Primary Care Provider Unavail able Rafael Suárez MD Unavailable +- [phone] Nenita Desir MD Unavailable Sherry Schwartz DO Unavailable Unavailable Danie Mobley MD Primary Care Provider [phone] Danie Mobley MD Unavailable [phone] Rommel Galdamez MD Primary Care Provider Unavail able Tila Russell MD Unavailable Unavailable Rommel Galdamez MD Unavailable Unavailable Ariana Mckinley MD Primary Care Provider [phone] Dalton Campos MD Unavailable [phone] Vinicio Bell DMD Unavailable [phone] Dalton Castrejon MD Unavailable [phone] Colin Ervin DPM Unavailable [phone] Pcp, No Primary Care Provider UnavailAriana Connor MD Unavailable Encounter Details Date Type Department Care Team (Late st Contact Info) Description 05/23/2017 Scanned Document [address], [address] [place] [address] Rommel Galdamez MD Social History [...] on filedocumented in this encounter Care Teams Relationship Counselor Relationship Specialty Start Date End Date Rommel Galdamez MD PCP - General Internal Medicine 04/18/17 05/05/19 Danie Mobley MD PCP - General Pulmonary Medicine 05/06/19 06/25/19 Rommel Galdamez MD PCP - General Internal Medicine 06/26/19 09/25/19 Rommel Galdamez MD PCP - [place] [employer] Attributed 10/09/18 05/10/19 Ariana Mckinley MD [address] [place] [address] PCP - General Internal Medicine 09/26/19 12/27/20 Pcp, No [address] [place] [address] PCP - General 12/28/20 Ariana Mckinley MD [address] [place] [address] PCP - [place] [employer] Attributed 10/09/20 11/08/20 Rafael Suárez MD Surgery, Colorectal 03/07/18 Nenita Desir MD Cardiovascular Disease 03/07/18 Sherry Schwartz DO Pulmonary Medicine 04/14/19 Danie Mobley MD Pulmonary Medicine 05/06/19 Tila Russell MD Otolaryngology 07/14/19 Dalton Campos MD [address] [place] [address] Cardiovascular Disease 01/27/20 Vinicio Bell DMD [address] [place] [address] Dentistry 04/15/20 Dalton Castrejon MD [address] [place] [address] Ophthalmology 04/15/20 Colin Ervin DPM [address] [place] [address] Podiatry 04/15/20 documented as of this encounter
--- OUTSIDE RECORDS SUMMARY | 2024-08-21 12:03 | XMS_ITS | Encounter Summary ---
Author Organization [facility] Address [address] [place] [address] Care Team Providers Care Telemarketing Agent Name Role Phone Rommel Galdamez MD Primary Care Provider Unavail able Rafael Suárez MD Unavailable +- [phone] Nenita Desir MD Unavailable Sherry Schwartz DO Unavailable Unavailable Danie Mobley MD Primary Care Provider [phone] Danie Mobley MD Unavailable [phone] Rommel Galdamez MD Primary Care Provider Unavail able Tila Russell MD Unavailable Unavailable Rommel Galdamez MD Unavailable Unavailable Ariana Mckinley MD Primary Care Provider [phone] Dalton Campos MD Unavailable [phone] Vinicio Bell DMD Unavailable [phone] Dalton Castrejon MD Unavailable [phone] Colin Ervin DPM Unavailable [phone] Pcp, No Primary Care Provider UnavailAriana Connor MD Unavailable Encounter Details Date Type Department Care Team (Late st Contact Info) Description 05/21/2018 Scanned Document [address], [address] [place] [address] Rommel Gladamez MD Social History Tobacco Use Types Packs/Day [...] on filedocumented in this encounter Care Teams Telemarketing Agent Relationship Specialty Start Date End Date Rommel Galdamez MD PCP - General Internal Medicine 04/18/17 05/05/19 Danie Mobley MD PCP - General Pulmonary Medicine 05/06/19 06/25/19 Rommel Galdamez MD PCP - General Internal Medicine 06/26/19 09/25/19 Rommel Galdamez MD PCP - [place] [employer] Attributed 10/09/18 05/10/19 Ariana Mckinley MD [address] [place] [address] PCP - General Internal Medicine 09/26/19 12/27/20 Pcp, [address] [place] [address] PCP - General 12/28/20 Ariana Mckinley MD [address] [place] [address] PCP - [employer] Attributed 10/09/20 11/08/20 Rafael Suárez MD Surgery, Colorectal 03/07/18 Nenita Desir MD Cardiovascular Disease 03/07/18 Sherry Schwartz DO Pulmonary Medicine 04/14/19 Danie Mobley MD Pulmonary Medicine 05/06/19 Tila Russell MD Otolaryngology 07/14/19 Dalton Campos MD [address] [place] [address] Cardiovascular Disease 01/27/20 Vinicio Bell DMD [address] [place], [place] [address] Dentistry 04/15/20 Dalton Castrejon MD [address] [place] [address] Ophthalmology 04/15/20 Colin Ervin DPM [address] [place] [address] Podiatry 04/15/20 documented as of this encounter
== END 2024-08-21 10:34 | disposition home or self-care (01) ==
LOC: HO.HNS 09:51
PROVIDERS: PCP Internal Medicine; Visit Provider Physician Assistant
DX: M48.062 Spinal stenosis, lumbar region with neurogenic claudication (principal)
CPT/HCPCS: 99024

== ENCOUNTER → 2024-08-21 09:50 | Outpatient (BNVA) | payer MEDICARE, OTHER, SELFPAY | PROVIDERS: PCP Internal Medicine; Visit Provider Physician Assistant | DX: Z47.89 Encounter for other orthopedic aftercare (principal); Z98.890 Other specified postprocedural states | CPT/HCPCS: 99212 ==

== ENCOUNTER 2025-02-02 06:21 | Outpatient (REF) | payer MEDICARE, OTHER, SELFPAY ==
[2025-02-02 06:44] LABS: MANUAL DIFF FLAG NO
[2025-02-02 07:18] LABS: Hematocrit 45.0 % (42.0-52.0); Hemoglobin 15.0 g/dl (14.0-18.0); Imm Gran Abs Auto 0.03 X10*3/uL (0.00-0.03); Imm Gran Pct Auto 0.5 % (0.0-0.4); Lymphocytes Absolute Auto 1.7 X10*3/uL (1.2-4.9); Mean Corpuscular HGB Conc 33.3 g/dl (31.0-36.0); Mean Corpuscular Hemoglobin 30.9 pg (27.0-33.0); Mean Corpuscular Volume 92.8 fL (80.0-98.0); NRBC Abs Auto 0.000 X10*3/uL (0.0-0.012); NRBC Pct Auto 0.0 /100WBC (0.0-0.2); Platelet Count 271 X10*3/uL (160-400); Red Blood Count 4.85 X10*6/uL (4.60-5.80); White Blood Count 6.1 X10*3/uL (4.8-10.8)
[2025-02-02 08:05] LABS: Alanine Aminotransferase 20 U/L (0-40); Albumin Level 4.2 g/dL (3.5-5.0); Alkaline Phosphatase 78 U/L (39-117); Anion Gap 13 (12-20); Aspartate Amino Transferase 23 U/L (5-37); Blood Urea Nitrogen 15 mg/dL (9-16); Calcium 9.1 mg/dL (8.4-10.2); Carbon Dioxide 24 mmol/L (22-29); Chloride 108 mmol/L (96-108); Cholesterol 160 mg/dL (<200); Estimated Glomerular Filt Rate > 60; HDL Cholesterol 42 mg/dL (>40); Magnesium 2.2 mg/dL (1.6-2.6); Potassium 4.4 mmol/L (3.3-5.1); Sodium 141 mmol/L (135-145); Total Protein 6.4 g/dL (6.5-8.0); Triglycerides 83 mg/dL (<150)
[2025-02-02 08:10] LABS: Thyroid Stimulating Hormone 3.32 uIU/mL (0.32-4.0)
== END 2025-02-02 06:22 | disposition home or self-care (01) ==
LOC: HO.LAB 06:21
PROVIDERS: PCP Internal Medicine; Visit Provider Internal Medicine
DX: I47.10 Supraventricular tachycardia, unspecified (principal); Z13.6 Encounter for screening for cardiovascular disorders
CPT/HCPCS: 36415; 80053; 80061; 83735; 84443; 85025

== ENCOUNTER 2025-04-03 08:17 | Outpatient (REF) | payer MEDICARE, OTHER, SELFPAY ==
--- NOTE | ~2025-04-03 | XR_ITS ---
EXAMINATION: XR CHEST CLINICAL INFORMATION: SUBACUTE COUGH COMPARISON: None available. TECHNIQUE: Frontal view of the chest was obtained. FINDINGS: The cardiac, hilar, and mediastinal contours are normal. The lungs are clear bilaterally. No pneumothorax or effusion. No focal osseous or soft tissue abnormality. XR/XR chest 1V IMPRESSION: Normal chest. Electronically signed by: Roc Prince MD 04/03/2025 08:40 AM EDT
--- NOTE | ~2025-04-03 | US_ITS ---
EXAMINATION: US ABDOMEN COMPLETE WITH LIVER ELASTOGRAPHY HISTORY: ELEVATED LIVER ENZYMES, TECHNIQUE: Real-time grayscale ultrasound imaging of the abdomen was performed and images were reviewed. COMPARISON: There are no prior studies available for comparison. FINDINGS: Liver: The right lobe of the liver measures 15.4 cm in size. The left lobe of the liver measures 9.4 cm in size. The liver demonstrates normal homogeneous echotexture. Multiple cysts are noted, the largest of which is in the right lobe measuring 1.7 x 2.2 x 2.0 cm. No intrahepatic biliary ductal dilatation is identified. There is normal hepatopedal flow in the portal vein. Ultrasound elastography of the liver was performed with 10 separate measurements of the liver parenchyma with the patient in the supine position. Measurements were obtained approximately 2 cm below Beltran's capsule and perpendicular to the capsule. The median shear wave velocity is 1.30 m/s. The interquartile range/median (IQR/median) is 0.16. Gallbladder and biliary tree: The gallbladder is unremarkable, without evidence of calculi, wall thickening, or pericholecystic fluid. There is no sonographic Caban sign. The common bile duct is normal in caliber measuring 2 mm. Kidneys: The right kidney measures 11.1 cm in length. The left kidney measures 11.2 cm in length. There is a complex appearing cyst in the interpolar region measuring 1.7 x 0.8 x 1.1 cm demonstrating wall calcification. No masses seen on the left. There is fullness of the right renal pelvis and lower pole calyces versus parapelvic cysts. There is no hydronephrosis. Pancreas: The pancreatic head, neck, and body are unremarkable. The pancreatic tail is obscured by bowel gas. Spleen: The spleen is normal in size and contour, measuring 9.6 cm in length. Abdominal aorta and inferior vena cava: The visualized portions of the abdominal aorta and inferior vena cava are normal in caliber. There is no free fluid in the abdomen. US/US abdomen comp w elastography IMPRESSION: 1.7 x 0.8 x 1.1 cm complex left renal cyst. Follow-up is recommended. The median shear wave velocity in the liver is 1.30 m/s, corresponding to a median liver stiffness of 5.06 kPa. The IQR/median value is 0.16. This is indicative of a poor quality data set, and the estimated liver stiffness may be unreliable. Findings are indicative of a low elastography value which rules out advanced chronic liver disease in asymptomatic patients. REFERENCE: Society of Radiologists in Ultrasound Liver Stiffness Thresholds (2020): LIVER STIFFNESS THRESHOLDS: *Shear wave velocity less than 1.3 m/s (Liver Stiffness equal or less than 5 kPa): High probability of being normal. *Shear wave velocity less than 1.7 m/s (Liver Stiffness less than 9 kPa): In the absence of other known clinical signs, rules out compensated advanced chronic liver disease. *Shear wave velocity between 1.7-2.1 m/s (Liver Stiffness 9-13 kPa): Suggestive of compensated advanced chronic liver disease but need further test for confirmation. *Shear wave velocity between 2.1-2.4 m/s (Liver Stiffness 13-17 kPa): Rules in compensated advanced chronic liver disease. *Shear wave velocity greater than 2.4 m/s (Liver Stiffness over 17 kPa): Suggestive of clinically significant portal hypertension. QUALITY OF DATA SET: *IQR/Median value equal or less than 0.15 implies a quality data set. *IQR/Median value over 0.15 implies a poor quality data set. SIGNIFICANT CHANGE FROM PRIOR EXAM: Significant change if liver stiffness measurement is 10% or greater from prior exam. OTHER CONSIDERATIONS: The stage of liver fibrosis may be overestimated in the setting of acute hepatitis, liver inflammation, elevated liver function tests, hepatic vascular congestion, obstructive cholestasis, non-fasting state, and infiltrative diseases such as amyloidosis and lymphoma. In some patients with NAFLD, the liver stiffness thresholds for compensated advanced chronic liver disease may be lower. In causes other than viral hepatitis and NAFLD, liver stiffness thresholds are not well established. Electronically signed by: Adriel Sanchez MD 04/03/2025 10:44 AM EDT
== END 2025-04-03 08:18 | disposition home or self-care (01) ==
LOC: HO.US 08:17
PROVIDERS: PCP Internal Medicine; Visit Provider Internal Medicine
DX: R74.8 Abnormal levels of other serum enzymes (principal); R05.2 Subacute cough
CPT/HCPCS: 71045; 76700; 76981

== ENCOUNTER → 2025-04-03 08:24 | Outpatient (BNV) | payer MEDICARE, OTHER, SELFPAY | PROVIDERS: PCP Internal Medicine; Visit Provider Radiology Diagnostic Radiology | DX: N28.1 Cyst of kidney, acquired (principal); R05.2 Subacute cough | CPT/HCPCS: 71045; 76700 ==